=== PATIENT | female | born 2005 | race Hispanic/Latino ===

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

== ENCOUNTER 2024-06-29 21:08 | Emergency (ER) | payer OTHER, SELFPAY ==
--- OUTSIDE RECORDS SUMMARY | 2024-06-29 21:11 | XMS REPORT | Continuity of Care Document ---
Author Name Unknown Address [address] [facility] [address] [place] [address] [facility] Address [address] [facility] [address] [place] [address] Care Team Providers Care Food And Beverage Checker Name Role Phone JACKLYN BASS Primary Care Physician Unavailab MIRNA Pinedo Attending Clinician Unavailable JACKLYN BASS Attending Clinician Unavailable Suresh KILLIAN, July Attending Clinician Unavailab SIGIFREDO Tellez Attending Clinician SIGIFREDO Mcgee Attending Clinician BETHANY Ballard Attending Clinician Unavailable Bethany Benedict Attending Clinician [phone] Lab, Ang - Db Attending Clinician Unavailable Jacklyn Figueroa Attending Clinician [phone] Doctor Unassigned, [place] Attending Clinician U CELSO Singh Attending Clinician Unavailab HARJIT Mcnamara Attending Clinician Unavailable OZZY URBAN Attending Clinician Riri Gao MD Attending Clinician [phone] RIRI HUTTON Attending Clinician Unavail able Tono Castro MD Attending Clinician [phone] TONO CASTRO Attending Clinician Unavailable BLOSSOM PEREZ Attending Clinician Unavailab GODWIN Vargas Attending Clinician Unavailab NATASHA Almeida Attending Clinician Unavailable Regina Bustillo MD Attending Clinician [phone] Natasha Forrest MD Attending Clinician [phone] Chris ROSARIO, Blossom Herman Attending Clinician Ronald Bach Attending Clinician [phone]- [phone] RONALD WEBER Attending Clinician Unavail able Perico Zafar MD Attending Clinician [phone] Unknown, Attending Attending Clinician Unavailab le Payers Payer Name Policy Type Policy Number Effective Date Expirati on Date Source [employer] MP [employer] [employer] O [employer] 94 ON 9 [id number] 2023 00:00:00 [facility] [id number] 2021 00:00:00 Problems Condition Name Condition Details Condition Category Status Onset Date Resolution Date Last Treatment Date Treating Clinician Comments Source Vulvar abscess Vulvar abscess Disease Active 6-05 00:00: 00 [facility] Dysmenorrh ea Dysmenorrh ea Disease Active -16 00:00: 00 [facility] Need for hepatitis C screening test Need for hepatitis C screening test Disease Active 5-16 00:00: 00 [facility] Enlarged tonsils Enlarged tonsils Disease Active -16 00:00: 00 [facility] Acute vaginitis Acute vaginitis Disease Active 2021-04 0-07 00:00: 00 [facility] Yeast infection Yeast infection Disease Active 2021-04 0- 00:00: 00 [facility] Encounter to establish care Encounter to establish care Disease Active 2021-04 0- 00:00: 00 [facility] Diabetes mellitus, new onset Diabetes mellitus, new onset Disease Active 2020-04 2-08 00:00: 00 [facility] Agoraphobi a Agoraphobi a Disease Active 12-19 00:00: 00 [facility] Generalize d anxiety disorder Generalize d anxiety disorder Disease Active 12-19 00:00: 00 [facility] Allergies, Adverse Reactions, Alerts Allergy Name Allergy Type Status Severity Reaction(s) Onset Date Inactive Date Treating Clinician Comments Source NO KNOWN ALLERGIE S Drug Class Active [facility] Social History Social Habit Start Date Stop Date Quantity Comments Source Gender identity [facility] Tobacco use and exposure 2022-09-14 00:00:00 2022-09-14 00:00:00 Smokeless tobacco non-user [facility] History of Social function 2022-09-09 00:00:00 2022-09-09 00:00:00 [facility] Exposure to SARS-CoV-2 (event) 2022-08-29 00:00:00 2022-09-08 15:42:00 Not sure [facility] Sex Assigned At 2003 00:00:00 2005 00:00:00 [facility] Smoking Status Start Date Stop Date Source Never smoked tobacco [facility] Medications Ordered Medication Name Filled Medication Name Start Date Stop Date Current Medication? Ordering Clinician Indication Dosage Frequency Signature (SIG) Comments Components Source sulfamethox azole-trime thoprim (BACTRIM DS) 800-160 mg per tablet 09-14 00:00: 00 Yes [id number] 1{tbl} Take 1 tablet by mouth in the morning and 1 tablet in the evening. [facility] LOESTRIN FE (LOESTRIN FE 05/01) 1 mg-20 mcg (21)/75 mg (7) tablet 09-14 00:00: 00 Yes [id number] 1{tbl} Take 1 tablet by mouth in the morning. [facility] fluconazole (DIFLUCAN) 150 mg tablet 09-09 00:00: 00 09-10 04:59 :00 No [id number] 150mg Take 1 tablet by mouth once now for 1 dose. [facility] metformin ER 500 mg 24 hr tablet 24 00:00: 00 Yes [facility] fluconazole (DIFLUCAN) 150 mg tablet 2021-04 0-07 00:00: 00 08-25 00:00 :00 No [id number] Take 1 tab today and repeat 1 in 72 hrs [facility] NOVOLOG FLEXPEN U-100 INSULIN 100 unit/mL (3 mL) injection 12-19 00:00: 00 Yes inject under the skin. 4-8 units at meal time [facility] LANTUS SOLOSTAR U-100 INSULIN 100 unit/mL (3 mL) injection 12-19 00:00: 00 Yes 36U 36 Units at bedtime. [facility] fluticasone propionate 50 mcg/actuati on nasal spray 04-22 00:00: 00 01-16 00:00 :00 No [id number] 1{spray } Use 1 [place] in each nostril daily. [facility] clindamycin -benzoyl peroxide gel 2019-04 00:00: 00 01-16 00:00 :00 No [id number] Apply to area(s) every morning. [facility] doxycycline monohydrate 100 mg capsule 12-28 00:00: 00 01-16 00:00 :00 No 100mg Take 1 capsule by mouth 2 (two) times daily. [facility] fluocinolon e (DERMA-SMOO THE/FS BODY OIL) 0.01 % body oil 12-21 00:00: 00 01-16 00:00 :00 No [id number] Apply to area(s) 2 (two) times daily as needed for Rash or Itching. [facility] tretinoin 0.025 % cream 12-21 00:00: 00 01-16 00:00 :00 No [id number] Apply to area(s) at bedtime. Start Mon/Wed/ i and increase to nightly as tolerated [facility] doxycycline monohydrate 100 mg tablet 12-21 00:00: 00 01-16 00:00 :00 No [id number] 100mg Take 1 tablet by mouth 2 (two) times daily. Twice daily for 2 weeks then daily until follow up [facility] Vital Signs Vital Name Observation Time Observation Value Comments S ource Systolic blood pressure 2022-09-14 14:33:00 125 mm[Hg] [facility] Diastolic blood pressure 2022-09-14 14:33:00 83 mm[Hg] [facility] Heart rate 2022-09-14 14:33:00 62 /min [facility] Body temperature 2022-09-14 14:33:00 36.5 Tarah [facility] Respiratory rate 2022-09-14 14:33:00 18 /min [facility] Body height 2022-09-14 14:33:00 157.5 cm [facility] Body weight 2022-09-14 14:33:00 69.854 kg [facility] BMI 2022-09-14 14:33:00 28.17 kg/m2 [facility] Body mass index (BMI) [Percentile] Per age and sex 2022-09-14 14:33:00 91.23 % [facility] Systolic blood pressure 2022-09-09 21:20:00 133 mm[Hg] [facility] Diastolic blood pressure 2022-09-09 21:20:00 82 mm[Hg] [facility] Heart rate 2022-09-09 21:20:00 80 /min [facility] Body temperature 2022-09-09 21:20:00 36.83 Tarah [facility] Respiratory rate 2022-09-09 21:20:00 18 /min [facility] Body height 2022-09-09 21:20:00 157.5 cm [facility] Body weight 2022-09-09 21:20:00 71.26 kg [facility] BMI 2022-09-09 21:20:00 28.73 kg/m2 [facility] Body mass index (BMI) [Percentile] Per age and sex 2022-09-09 21:20:00 92.29 % [facility] Oxygen saturation in Arterial blood by Pulse oximetry 2022-09-09 21:20:00 98 /min [facility] Systolic blood pressure 2022-08-25 15:57:00 110 mm[Hg] [facility] Diastolic blood pressure 2022-08-25 15:57:00 72 mm[Hg] [facility] Heart rate 2022-08-25 15:57:00 68 /min [facility] Body temperature 2022-08-25 15:57:00 36.78 Tarah [facility] Body height 2022-08-25 15:57:00 160 cm [facility] Body weight 2022-08-25 15:57:00 71.305 kg [facility] BMI 2022-08-25 15:57:00 27.85 kg/m2 [facility] Body mass index (BMI) [Percentile] Per age and sex 2022-08-25 15:57:00 90.61 % [facility] Oxygen saturation in Arterial blood by Pulse oximetry 2022-08-25 15:57:00 98 /min [facility] Systolic blood pressure 2022-01-16 14:53:00 126 mm[Hg] [facility] Diastolic blood pressure 2022-01-16 14:53:00 81 mm[Hg] [facility] Heart rate 2022-01-16 14:53:00 83 /min [facility] Body temperature 2022-01-16 14:53:00 36.89 Tarah [facility] Body height 2022-01-16 14:53:00 160 cm [facility] Body weight 2022-01-16 14:53:00 76.658 kg [facility] BMI 2022-01-16 14:53:00 29.94 kg/m2 [facility] Body mass index (BMI) [Percentile] Per age and sex 2022-01-16 14:53:00 94.55 % [facility] Oxygen saturation in Arterial blood by Pulse oximetry 2022-01-16 14:53:00 99 /min [facility] Systolic blood pressure 2021-06-19 14:15:00 125 mm[Hg] [facility] Diastolic blood pressure 2021-06-19 14:15:00 82 mm[Hg] [facility] Heart rate 2021-06-19 14:15:00 87 /min [facility] Body temperature 2021-06-19 14:15:00 36.39 Tarah [facility] Respiratory rate 2021-06-19 14:15:00 19 /min [facility] Body weight 2021-06-19 14:15:00 69.174 kg [facility] Oxygen saturation in Arterial blood by Pulse oximetry 2021-06-19 14:15:00 98 /min [facility] Procedures Procedure Date / Time Performed Performing Clinicia n Source POCT TEST 2022-09-09 00:00:00 Bethany Serra [facility] ASSIGNMENT OF BENEFITS 2022-08-25 15:40:38 Docto r Unassigned, [place] [facility] POCT URINALYSIS 2022-01-16 00:00:00 Jacklyn Bass [facility] Encounters Start Date/Time End Date/Time Encounter Type Admission Type Attending [facility] Care Facility Care Department Encounter ID Source 2024-02-01 16:00:00 2024-02-01 16:00:00 Outpatient MIRNA OSORIO [id number] Elida Zayas 2022-12-29 08:00:00 2022-12-29 08:00:00 Outpatient JACKLYN HOBBS [facility] [id number] [facility] 2022-12-22 00:00:00 2022-12-22 00:00:00 Pre Visit Outreach Shahnaz Prince 1.2.840.114 350.1.13.10 4.2.7.2.686 [id number] [facility] 2022-12-15 09:30:00 2022-12-15 09:30:00 Outpatient R OLIVA-JOHNIE S, SIGIFREDO OLIVA-JOHNIE S, SIGIFREDO [facility] [id number] [facility] 2022-09-14 09:00:00 2022-09-14 09:52:13 Outpatient R OLIVA-JOHNIE S, SIGIFREDO OLIVA-JOHNIE S, SIGIFREDO [facility] [id number] [facility] 2022-09-14 09:00:00 2022-09-14 09:52:13 [facility] 1.2840.114 350.1.13.10 4.2.7.2.686 [id number] [facility] 2022-09-09 16:20:00 2022-09-09 16:40:02 Outpatient R BETHANY SERRA [facility] [id number] [facility] 2022-09-09 16:20:00 2022-09-09 16:40:02 [facility] 1.284.114 350.1.13.10 4.2.7.2.686 [id number] [facility] 2022-08-25 11:30:00 2022-08-25 11:38:05 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, Jacklyn Stafford [facility] 1.284.114 350.1.13.10 4.2.7.2.686 [id number] [facility] 2022-08-25 11:30:00 2022-08-25 11:30:00 Outpatient R JACKLYN BASS [facility] [id number] [facility] 2022-08-25 10:30:00 2022-08-25 11:25:41 Office Visit Jacklyn Bass [facility] 1.2840.114 350.1.13.10 4.2.7.2.686 [id number] [facility] 2022-08-25 00:00:00 2022-08-25 00:00:00 Orders Only Doctor Unassigned, [place] [facility] 1.2840.114 350.1.13.10 4.2.7.2.686 [id number] [facility] 2022-01-16 10:00:00 2022-01-16 10:24:07 Outpatient R TALIJACKLYN Altamirano [facility] [id number] [facility] 2022-01-16 10:00:00 2022-01-16 10:24:07 Office Visit Kali Jacklyn [facility] 1..840.114 350.1.13.10 4.2.7.2.686 [id number] [facility] 2021-09-23 10:15:00 2021-09-23 10:15:00 Outpatient R CELSO VALDEZ [facility] [id number] [facility] 2021-08-13 14:30:00 2021-08-13 14:30:00 Outpatient R HARJIT LAST [facility] [id number] [facility] 2021-07-15 14:40:00 2021-07-15 14:40:00 Outpatient R OZZY URBAN [facility] [id number] [facility] 2021-06-19 08:20:00 2021-06-19 08:40:00 Office Visit Riri Hutton [facility] 1.840.114 350.1.13.10 4.2.7.2.686 [id number] [facility] 2021-06-19 08:20:00 2021-06-19 08:20:00 Outpatient R RIRI HUTTON [facility] [id number] [facility] 2021-04-22 13:20:00 2021-04-22 13:47:41 Office Visit Tono Castro [facility] 1.84.114 350.1.13.10 4.2.7.2.686 [id number] [facility] 2021-04-22 13:20:00 2021-04-22 13:47:41 Outpatient R TONO CASTRO [facility] [id number] [facility] 2021-04-22 13:20:00 2021-04-22 13:20:00 Outpatient R STEVEN TONO [facility] [id number] [facility] 2021-04-22 00:00:00 2021-04-22 00:00:00 Telephone Tono Castro [facility] 1.2.840.114 350.1.13.10 4.2.7.2.686 [id number] [facility] 2021-03-19 00:00:00 2021-03-19 00:00:00 Telephone Riri Hutton [facility] 1.2.840.114 350.1.13.10 4.2.7.2.686 [id number] [facility] 2021-03-18 09:40:00 2021-03-18 10:28:00 Outpatient RIRI JOHNSON [facility] [id number] [facility] 2021-03-18 09:37:28 2021-03-18 10:28:00 Office Visit Riri Hutton [facility] 1.2840.114 350.1.13.10 4.2.7.2.686 [id number] [facility] 2021-03-18 09:40:00 2021-03-18 09:40:00 Outpatient R RIRI HUTTON [facility] [id number] [facility] 2021-03-18 00:00:00 2021-03-18 00:00:00 Orders Only Doctor Unassigned, [place] [facility] 1.2840.114 350.1.13.10 4.2.7.2.686 [id number] [facility] 2021-02-05 10:10:00 2021-02-05 10:10:00 Outpatient BLOSSOM BOWDEN [facility] [id number] [facility] 2020-05-24 14:45:00 2020-05-24 14:45:00 Outpatient GODWIN HALE [facility] [id number] [facility] 2020-05-07 10:00:00 2020-05-07 10:00:00 Outpatient CELSO YEUNG [facility] [id number] [facility] 2020-04-22 10:15:00 2020-04-22 10:15:00 Outpatient NATASHA ALLEN [facility] [id number] [facility] 2020-03-22 13:30:00 2020-03-22 13:30:00 Outpatient GODWIN HALE [facility] [id number] [facility] 2020-02-21 00:00:00 2020-02-21 00:00:00 Telephone Regina Bustillo [facility] 1.2.840.114 350.1.13.10 4.2.7.2.686 [id number] [facility] 2020-02-07 00:00:00 2020-02-07 00:00:00 Telephone [facility] 1.2.840.114 350.1.13.10 4.2.7.2.686 [id number] [facility] 2020-01-29 00:00:00 2020-01-29 00:00:00 Telephone [facility] 1.2.840.114 350.1.13.10 4.2.7.2.686 [id number] [facility] 2019-12-29 00:00:00 2019-12-29 00:00:00 Telephone [facility] 1.2.840.114 350.1.13.10 4.2.7.2.686 [id number] [facility] 2019-12-27 00:00:00 2019-12-27 00:00:00 Telephone [facility] 1.0.114 350.1.13.10 4.2.7.2.686 [id number] [facility] 2019-12-22 14:13:28 2019-12-22 16:01:37 Office [facility] 1.0.114 350.1.13.10 4.2.7.2.686 [id number] [facility] 2019-12-22 15:15:00 2019-12-22 15:15:00 Outpatient R NATASHA FORREST [facility] [id number] [facility] 2019-12-20 07:46:32 2019-12-20 09:01:35 Office Visit Tono Castro [facility] 1.0.114 350.1.13.10 4.2.7.2.686 [id number] [facility] 2019-12-20 08:00:00 2019-12-20 08:00:00 Outpatient RIRI JOHNSON [facility] [id number] [facility] 2019-08-16 15:10:00 2019-08-16 15:10:00 Outpatient BLOSSOM BOWDEN [facility] [id number] [facility] 2019-08-16 14:14:45 2019-08-16 14:34:45 Telemedici ne Visit Blossom Perez [facility] 1..114 350.1.13.10 4.2.7.2.686 [id number] [facility] 2019-08-15 00:00:00 2019-08-15 00:00:00 Orders Only Doctor Unassigned, [place] [facility] 1.840.114 350.1.13.10 4.2.7.2.686 [id number] [facility] 2019-08-14 00:00:00 2019-08-14 00:00:[address] [facility] 1.840.114 350.1.13.10 4.2.7.2.686 [id number] [facility] 2019-07-14 13:30:00 2019-07-14 13:30:00 Outpatient R BLOSSOM PEREZ [facility] [id number] [facility] 2019-07-14 12:58:26 2019-07-14 13:18:26 Telemedici ne Visit Blossom Perez [facility] 1.2840.114 350.1.13.10 4.2.7.2.686 [id number] [facility] 2019-07-12 00:00:00 2019-07-12 00:00:[address] [facility] 1.2840.114 350.1.13.10 4.2.7.2.686 [id number] [facility] 2019-07-05 16:00:00 2019-07-05 16:00:00 Outpatient R WEBER [facility] [id number] [facility] 2019-07-05 14:24:28 2019-07-05 14:44:28 Telemedici ne Visit Weber [facility] 1.2840.114 350.1.13.10 4.2.7.2.686 [id number] [facility] 2019-07-05 00:00:00 2019-07-05 00:00:[address] [facility] 1.2.840.114 350.1.13.10 4.2.7.2.686 [id number] [facility] 2019-06-13 13:51:57 2019-06-13 14:15:[address] [facility] 1.2.840.114 350.1.13.10 4.2.7.2.686 [id number] [facility] 2019-06-13 14:00:00 2019-06-13 14:00:00 Outpatient R RONALD WEBER [facility] [id number] [facility] 2019-06-13 00:00:00 2019-06-13 00:00:00 Orders Only Doctor Unassigned, [place] [facility] 1.2.840.114 350.1.13.10 4.2.7.2.686 [id number] [facility] 2019-06-13 00:00:00 2019-06-13 00:00:00 Letter (Out) Weber [facility] 1.2.840.114 350.1.13.10 4.2.7.2.686 [id number] [facility] 2019-05-31 14:00:12 2019-05-31 14:19:53 Office Visit Weber Ronald [facility] 1.2.840.114 350.1.13.10 4.2.7.2.686 [id number] [facility] 2019-05-31 00:00:00 2019-05-31 00:00:00 Letter (Out) Weber [facility] 1.2.840.114 350.1.13.10 4.2.7.2.686 [id number] [facility] 2019-04-21 00:00:00 2019-04-21 00:00:00 Telephone Tono Castro [facility] 1.2.840.114 350.1.13.10 4.2.7.2.686 [id number] [facility] 2018-12-09 14:19:21 2018-12-09 15:05:49 Office Visit Blossom Perez [facility] 1.2.840.114 350.1.13.10 4.2.7.2.686 [id number] [facility] 2018-12-09 00:00:00 2018-12-09 00:00:00 Orders Only Doctor Unassigned, [place] [facility] 1.2.840.114 350.1.13.10 4.2.7.2.686 [id number] [facility] 2018-11-27 11:25:55 2018-11-27 11:40:55 Urgent Care Perico Zafar Unknown, Attending [facility] 1.2.840.114 350.1.13.10 4.2.7.2.686 [id number] [facility] 2018-11-27 00:00:00 2018-11-27 00:00:00 Orders Only Doctor Unassigned, [place] [facility] 1.2.840.114 350.1.13.10 4.2.7.2.686 [id number] [facility] 2018-11-24 00:00:00 2018-11-24 00:00:00 Telephone Ronald Weber [facility] 1.2.840.114 350.1.13.10 4.2.7.2.686 [id number] [facility] Results Test Description Test Time Test Comments Results Result Co mments Source [facility] [id number] 21:40:00* Test Item Value Reference Range Interpretation Comme nts POCT PREG (test code = 1605) Negative On board controls acceptable with C Line (test code = 3574) Yes POCT PREG LOT # (test code = 3575) POCT PREG TEST DATE ( test code = 3576) [facility] URINALYSIS W SPECIFIC [id number] 15:46:00* Test Item Value Reference Range Interpretation Comme nts POCT U SP GRAV (test code = 3255) 1.020 mg/dl 1.005-1.025 POCT PH U (test code = 3254) 6 mg/dl 5-8 POCT U LEUK EST (test code = 3263) neg Negative - Negative POCT U NIT (test code = 3262) neg Negative - Negati ve POCT U PROT (test code = 3259) neg Negative - Negative POCT U GLU (test code = 3256) Negative - Negati ve POCT U KETONE (test code = 3258) neg Negative - Negative POCT U UROBILI (test code = 3260) normal 0.2-1 POCT U BILI (test code = 3261) neg Negative - Negative POCT U BLD (test code = 3257) trace Negative - Negati ve POCT U COLOR (test code = 3266) dark POCT U APPEAR (test code = 3267) clear [facility] URINALYSIS W SPECIFIC [id number] 15:46:00* Test Item Value Reference Range Interpretation Comme nts POCT U SP GRAV (test code = 3255) 1.020 mg/dl 1.005-1.025 POCT PH U (test code = 3254) 6 mg/dl 5-8 POCT U LEUK EST (test code = 3263) neg Negative - Negative POCT U NIT (test code = 3262) neg Negative - Negati ve POCT U PROT (test code = 3259) neg Negative - Negative POCT U GLU (test code = 3256) Negative - Negati ve POCT U KETONE (test code = 3258) neg Negative - Negative POCT U UROBILI (test code = 3260) normal 0.2-1 POCT U BILI (test code = 3261) neg Negative - Negative POCT U BLD (test code = 3257) trace Negative - Negati ve POCT U COLOR (test code = 3266) dark POCT U APPEAR (test code = 3267) clear [facility] URINALYSIS W SPECIFIC [id number] 15:46:00* Test Item Value Reference Range Interpretation Comme nts POCT U SP GRAV (test code = 3255) 1.020 mg/dl 1.005-1.025 POCT PH U (test code = 3254) 6 mg/dl 5-8 POCT U LEUK EST (test code = 3263) neg Negative - Negative POCT U NIT (test code = 3262) neg Negative - Negati ve POCT U PROT (test code = 3259) neg Negative - Negative POCT U GLU (test code = 3256) Negative - Negati ve POCT U KETONE (test code = 3258) neg Negative - Negative POCT U UROBILI (test code = 3260) normal 0.2-1 POCT U BILI (test code = 3261) neg Negative - Negative POCT U BLD (test code = 3257) trace Negative - Negati ve POCT U COLOR (test code = 3266) dark POCT U APPEAR (test code = 3267) [facility] [id number] 15:46:00* Test Item Value Reference Range Interpretation Comme nts POCT U SP GRAV (test code = 3255) 1.020 mg/dl 1.005-1.025 POCT PH U (test code = 3254) 6 mg/dl 5-8 POCT U LEUK EST (test code = 3263) neg Negative - Negative POCT U NIT (test code = 3262) neg Negative - Negati ve POCT U PROT (test code = 3259) neg Negative - Negative POCT U GLU (test code = 3256) Negative - Negati ve POCT U KETONE (test code = 3258) neg Negative - Negative POCT U UROBILI (test code = 3260) normal 0.2-1 POCT U BILI (test code = 3261) neg Negative - Negative POCT U BLD (test code = 3257) trace Negative - Negati ve POCT U COLOR (test code = 3266) dark POCT U APPEAR (test code = 3267) clear [facility] Notes Date/Time Note Provider Source 2022-12-22 13:13:20 Formatting of this n ote might be different from the original. [employer] [facility] Care Everywhere searched for patient records.Information reconciled into the patients chart. [employer] Message sent to patient with open care gaps. PN-PSYCHIATRY [facility]
[2024-06-29] MEDS ORDERED: NA CHLORIDE 0.9% 1,000 ML ONE (22:31)
[2024-06-29 22:37] LABS: Absolute Eosinophils 0.3 K/uL (0-0.5); Absolute Lymphocytes (CBC) 2.8 K/uL (0.7-4.9); Absolute Monocytes 0.6 K/uL (0.1-1.3); Absolute Neutrophil 3.9 K/uL (1.8-8.0); Basophils % 0.6 % (0-1.3); Eosinophils % 3.5 % (0-4.4); Hematocrit 42.4 % (36.0-45.0); Hemoglobin 14.8 g/dL (12.0-15.0); Lymphocytes % 36.7 % (15.3-44.8); MCH 28.9 pg (27.0-35.0); MCV 82.6 fL (80-100); MPV 8.3 fL (7.6-11.3); Monocytes % 8.2 % (3.3-12.3); Platelets 269 thou/uL (152-406); RBC Red Blood Cell Count 5.13 M/uL (3.86-4.86); Red Cell Distribution Width 12.8 % (12.1-15.2)
[2024-06-29 22:54] LABS: Albumin 3.7 g/dL (3.4-5.0); Anion Gap 6.6 mEq/L (5.0-15.0); Bilirubin Total 0.3 mg/dL (0.2-1.0); Globulin 3.7 g/dL (2.3-3.5); Potassium 3.6 mEq/L (3.5-5.1); Protein, Total 7.4 g/dL (6.4-8.2)
[2024-06-29 23:13] LABS: Specific Gravity 1.027 (1.005-1.030); Urine Bilirubin NEGATIVE (Negative); Urine Blood Negative (Negative); Urine Clarity Clear (Clear); Urine Color Light-Yellow (Yellow); Urine Glucose 4+ (Over) (Negative); Urine Ketones NEGATIVE (Negative); Urine Microscopic Reflex YN NO UMIC; Urine Nitrite NEGATIVE (Negative); Urine Protein NEGATIVE (Negative); Urine Urobilinogen Normal (Normal)
[2024-06-30] MEDS ORDERED: NA CHLORIDE 0.9% 1,000 ML ONE (00:27)
[2024-06-30] MEDS ORDERED: METFORMIN HCL 500 MG TAB ONE (00:27)
--- NOTE | 2024-06-30 00:51 | EDPHYS ---
Physician Documentation [facility] Name: Lewis Smith Age: 18 yrs Sex: Female : 2005 Arrival Date: 06/29/2024 Time: 21:08 Bed DX1 Private MD: ED Physician Sebastian Tucker HPI: 06/29 22:10 This 18 yrs old Female presents to ER via Ambulatory with complaints of cp Headache. 22:10 The patient complains of pain to the top of head and forehead. The patient describes cp the headache as aching, waxing and waning. 22:10 Onset: The symptoms/episode began/occurred for about 1 month, intermittent. headache at cp times after waking up. 22:10 Associated signs and symptoms: Pertinent positives: nausea, Pertinent negatives: fever, cp neck stiffness, trauma. Patient reports PMHX significant for DM. Reports in the past prescribed insulin and metformin but has been off prescribed medications for about 2 years. Historical: - Allergies: 21:29 No Known Allergies; br2 - PMHx: 21:29 diabetes mellitus; br2 - Immunization history:: Adult Immunizations up to date. - Infectious Disease History:: Denies. - Social history:: Smoking status: Patient/guardian denies using tobacco, Patient uses Patient/guardian denies using alcohol, street drugs. ROS: 22:15 Constitutional: Negative for body aches, chills, fever, poor PO intake, cp 22:15 Cardiovascular: Negative for chest pain, palpitations, cp 22:15 Respiratory: Negative for cough, shortness of breath, wheezing, 22:15 Abdomen/GI: Positive for nausea, Negative for abdominal pain, vomiting, diarrhea, constipation, 22:15 : Negative for urinary symptoms, 22:15 Neuro: Positive for headache, Negative for altered mental status, weakness, 22:15 Endocrine: Positive for polydipsia, 22:15 All other systems are negative, Exam: 22:20 Constitutional: The patient appears in no acute distress, alert, awake, cp non-diaphoretic, non-toxic, well developed, well nourished, 22:20 Head/Face: Normocephalic, atraumatic. cp 22:20 Eyes: Periorbital structures: appear normal, Pupils: equal, round, and reactive to light and accomodation, Extraocular movements: intact throughout, Conjunctiva: normal, no exudate, no injection, Sclera: no appreciated abnormality, Lids and lashes: appear normal, bilaterally, 22:20 ENT: External ear(s): are unremarkable, Nose: is normal, Mouth: Lips: moist, Oral mucosa: moist, Posterior pharynx: Airway: no evidence of obstruction, patent, 22:20 Neck: ROM/movement: is normal, is supple, without pain, no range of motions limitations, 22:20 Chest/axilla: Inspection: normal, 22:20 Cardiovascular: Rate: normal, Rhythm: regular, 22:20 Respiratory: the patient does not display signs of respiratory distress, Respirations: normal, no use of accessory muscles, no retractions, labored breathing, is not present, Breath sounds: are clear throughout, no decreased breath sounds, no stridor, no wheezing, 22:20 Abdomen/GI: Inspection: abdomen appears normal, Palpation: abdomen is soft and non-tender, in all quadrants, 22:20 Neuro: Orientation: to person, place \T\ time. Mentation: is normal, Cerebellar function: Romberg testing is negative, Motor: moves all fours, strength is normal, Sensation: no obvious gross deficits, Gait: is steady, at a normal pace, without difficulty, Vital Signs: 21:25 BP 138 / 97; Pulse 85; Resp 18; Temp 97.2(TE); Pulse Ox 100% on R/A; Weight 68.04 kg; br2 Height 5 ft. 3 in. ; Pain 8/10; 06/30 01:20 BP 125 / 85; Pulse 81; Resp 17 S; Temp 97.6(T); Pulse Ox 100% on R/A; ha1 06/29 21:25 Body Mass Index 26.57 (68.04 kg, 160.02 cm) br2 06/29 21:25 Pain Scale: Adult br2 Vikas Coma Score: 00:50 Eye Response: spontaneous(4). Motor Response: obeys commands(6). Verbal Response: cp oriented(5). Total: 15. MDM: 06/29 21:26 Medical Screening Exam initiated cp 23:00 Differential diagnosis: hyponatremia, intracerebral hemorrhage, migraine, sinusitis, cp subarachnoid bleed, tension headache, hyperglycemia. 06/30 00:50 Data reviewed: vital signs, nurses notes, lab test result(s), radiologic studies, CT cp scan, and as a result, I will discharge patient. 00:50 Care significantly affected by the following chronic conditions: Diabetes, cp noncompliant. Counseling: I had a detailed discussion with the patient and/or guardian regarding the historical points, exam findings, and any diagnostic results supporting the discharge/admit diagnosis, lab results, radiology results, the need for outpatient follow up, for definitive care, a family practitioner, to return to the emergency department if symptoms worsen or persist or if there are any questions or concerns that arise at home. Response to treatment: the patient's symptoms have markedly improved after treatment, and as a result, I will discharge patient. 00:50 Care significantly affected by the following Social Determinants of Health: Poor access cp to healthcare and/or lack of insurance. 06/29 21: Order name: CBC with Diff; Complete Time: 23:25 cp 06/30 00:02 Interpretation: Normal except: RBC 5.13. cp 06/29 22: Order name: CMP; Complete Time: 23:25 cp 06/30 00:02 Interpretation: Normal except: NA 134; GLUC 301; GLOB 3.7; A/G 1.0. cp 06/29 22: Order name: Lipase; Complete Time: 23:25 cp 06/29 22: Order name: Test, Urine; Complete Time: 23:25 cp 06/29 22: Order name: Urinalysis w/ reflexes; Complete Time: 23:25 cp 06/30 00:03 Interpretation: Normal except: UGLUC 4+ (Over). cp 06/29 21:43 Order name: Glucose, Ancillary Testing; Complete Time: 23:25 EDMS 06/29 22: Order name: CT Head Brain wo Cont cp 06/29 22: Order name: Accucheck Blood Glucose; Complete Time: 22:33 cp 06/29 22: Order name: IV Saline Lock; Complete Time: 22:33 cp 06/29 21: Order name: Labs collected and sent; Complete Time: 22:33 cp Administered Medications: 06/29 21:43 Drug: NS 0.9% IV 1000 ml IV at 1 bolus Per protocol; to be given as a bolus over 60 br2 minutes Route: IV; Rate: 1 bolus; Site: right antecubital; 06/30 00:04 Follow up: Response: No adverse reaction; IV Status: Completed infusion ha1 00:13 Not Given (Patient Refused): [id number] mg IVP once; over 1 to 2 minutes ha1 00:13 Not Given (Patient Refused): mg IVP once ha1 00:13 Not Given (Patient Refused): [id number] mg IVP once ha1 00:38 Drug: metFORMIN PO 1000 mg PO once; with meal or snack Route: PO; ha1 01:30 Follow up: Response: No adverse reaction; Blood sugar is lowered ha1 00:38 Drug: NS 0.9% IV 1000 ml IV at 1 bolus Per protocol; to be given as a bolus over 60 ha1 minutes Route: IV; Rate: 1 bolus; Site: left antecubital; 01:00 Follow up: Response: No adverse reaction; IV Status: Completed infusion; IV Intake: ha1 1000ml Point of Care Testing: Blood Glucose: 06/29 22:36 Blood Glucose: 288 mg/dL; br2 Ranges: Critical Glucose Levels:Adult <50 mg/dl or >400 mg/dl <40 mg/dl or >180 mg/dl Disposition: 06/30 15:59 Co-signature as Attending Physician, Sebastian Tucker MD I agree with the assessment sp4 and plan of care. I reviewed the patient's care provided by the Advanced Practice Provider and agree with the diagnosis and treatment plan. 07/01 01:03 Chart complete. cp Disposition Summary: 06/30/24 00:51 Discharge Ordered Notes: Location: Home cp Problem: an ongoing problem cp Symptoms: have improved cp Condition: Stable cp Diagnosis - Diabetes mellitus due to underlying condition with hyperglycemia cp - Headache cp Followup: cp - With: Buck Weber MD - When: 1 week - Reason: headaches Followup: cp - With: Private Physician - When: 2 - 3 days - Reason: elevated blood glucose, follow-up for diabetes Discharge Instructions: - Discharge Summary Sheet cp - General Headache Without Cause cp - Migraine Headache cp - Hyperglycemia cp - Daily Diabetes Mellitus Record cp - Blood Glucose Monitoring, Adult cp - Diabetes Mellitus and Nutrition, Adult cp Forms: - Medication Reconciliation Form cp - Antibiotic Education cp - Prescription Opioid Use cp - Patient Portal Instructions cp - Leadership Thank You Letter cp Prescriptions: - Ibuprofen 800 mg Oral Tablet - take 1 tablet ORAL route every 8 hours As needed take with food; 30 tablet; cp Refills: 0, Product Selection Permitted - Zofran 4 mg Oral Tablet - take 1 tablet ORAL route every 12 hours As needed; 20 tablet; Refills: 0, cp Product Selection Permitted - Metformin 1,000 mg Oral tablet - take 0.5 tablet ORAL route every 12 hours with morning and evening meals; 60 cp tablet; Refills: 0, Product Selection Permitted Signatures: Dispatcher [employer] EDVA Cipriano Miranda PA PA cp Ayala, Heidy, RN RN ha1 Sebastian Tucker MD MD sp4 Deidra Connolly RN RN br2
--- NOTE | 2024-06-30 00:51 | ER ---
Nurse's Notes [facility] Name: Lewis Smith Age: 18 yrs Sex: Female : 2005 Arrival Date: 06/29/2024 Time: 21:08 Bed DX1 Private MD: Diagnosis: Diabetes mellitus due to underlying condition with hyperglycemia;Headache Presentation: 06/29 21:25 Chief complaint: Patient states: FREQ MIGRAINS FOR MONTH. UNABLE TO GET RELIEF TODAY. br2 C/O NAUSEA. Coronavirus screen: Client denies travel out of the [place] in the last 14 days. Ebola Screen: Patient denies exposure to infectious person. Initial Sepsis Screen: Does the patient meet any 2 criteria? No. Patient's initial sepsis screen is negative. Does the patient have a suspected source of infection? No. Patient's initial sepsis screen is negative. Risk Assessment: Do you want to hurt yourself or someone else? Patient reports no desire to harm self or others. Onset of symptoms is unknown. 21:25 Method Of Arrival: Ambulatory br2 21:25 Acuity: LAURI 3 br2 Triage Assessment: 21:25 Pain: Pain began 1 day ago. Neuro: Kc Agitation-Sedation Scale (RASS): 0 - Alert br2 and Calm Level of Consciousness is awake, alert, obeys commands, Oriented to person, place, time, situation, Reports headache frontal area, NAUSEA. 21:29 Headache History: The patient has had previous headaches. General: Appears in no br2 apparent distress. comfortable, Behavior is calm, cooperative. Pain: Complains of pain in forehead Pain currently is 8 out of 10 on a pain scale. Also complains of nausea. Historical: - Allergies: 21:29 No Known Allergies; br2 - PMHx: 21:29 diabetes mellitus; br2 - Immunization history:: Adult Immunizations up to date. - Infectious Disease History:: Denies. - Social history:: Smoking status: Patient/guardian denies using tobacco, Patient uses Patient/guardian denies using alcohol, street drugs. Screenin:25 [facility] ED Fall Risk Assessment (Adult) History of falling in the last 3 months, br2 including since admission No falls in past 3 months (0 pts) Confusion or Disorientation No (0 pts) Intoxicated or Sedated No (0 pts) Impaired Gait No (0 pts) Mobility Assist Device Used No (0 pt) Altered Elimination No (0 pt) Score/Fall Risk Level 0 - 2 = Low Risk Oriented to surroundings. Abuse screen: Denies threats or abuse. Denies injuries from another. Nutritional screening: No deficits noted. Tuberculosis screening: No symptoms or risk factors identified. Assessment: 21:25 Reassessment: SEE TRIAGE ASSESSMENT. br2 23:50 Reassessment: Patient and/or family updated on plan of care and expected duration. Pain ha1 level reassessed. Patient is alert, oriented x 3, equal unlabored respirations, skin warm/dry/pink. Patient denies pain at this time. Patient states feeling better. Patient states symptoms have improved. Vital Signs: 21:25 BP 138 / 97; Pulse 85; Resp 18; Temp 97.2(TE); Pulse Ox 100% on R/A; Weight 68.04 kg; br2 Height 5 ft. 3 in. ; Pain 8/10; 06/30 01:20 BP 125 / 85; Pulse 81; Resp 17 S; Temp 97.6(T); Pulse Ox 100% on R/A; ha1 06/29 21:25 Body Mass Index 26.57 (68.04 kg, 160.02 cm) br2 06/29 21:25 Pain Scale: Adult br2 [place] Coma Score: 00:50 Eye Response: spontaneous(4). Motor Response: obeys commands(6). Verbal Response: cp oriented(5). Total: 15. ED Course: 06/29 21:11 Patient arrived in ED. im 21:18 Cipriano Miranda PA is PHCP. cp 21:18 Sebastian Tucker MD is Attending Physician. cp 21:24 Arm band placed on right wrist. ha1 21:25 Patient has correct armband on for positive identification. Provided Education on: PLAN br2 OF CARE. 21:29 Triage completed. br2 22:33 Inserted saline lock: 20 gauge in right antecubital area, using aseptic technique. af3 Blood collected. Flushed with 10 mL NS. 22:41 Deidra Connolly, CHANO is Primary Nurse. br2 23:03 CT Head Brain wo Cont In Process Unspecified. EDMS 23:30 No provider procedures requiring assistance completed. ha1 06/30 00:49 Buck Weber MD is Referral Physician. cp 01:20 Patient did not have IV access during this emergency room visit. IV discontinued, ha1 intact, bleeding controlled, No redness/swelling at site. Pressure dressing applied. Administered Medications: 06/29 22:43 Drug: NS 0.9% IV 1000 ml IV at 1 bolus Per protocol; to be given as a bolus over 60 br2 minutes Route: IV; Rate: 1 bolus; Site: right antecubital; 06/30 00:04 Follow up: Response: No adverse reaction; IV Status: Completed infusion ha1 00:13 Not Given (Patient Refused): [id number] mg IVP once; over 1 to 2 minutes ha1 00:13 Not Given (Patient Refused): mg IVP once ha1 00:13 Not Given (Patient Refused): [id number] mg IVP once ha1 00:38 Drug: metFORMIN PO 1000 mg PO once; with meal or snack Route: PO; ha1 01:30 Follow up: Response: No adverse reaction; Blood sugar is lowered ha1 00:38 Drug: NS 0.9% IV 1000 ml IV at 1 bolus Per protocol; to be given as a bolus over 60 ha1 minutes Route: IV; Rate: 1 bolus; Site: left antecubital; 01:00 Follow up: Response: No adverse reaction; IV Status: Completed infusion; IV Intake: ha1 1000ml Medication: 01:30 VIS not applicable for this client. ha1 Point of Care Testing: Blood Glucose: 06/29 22:36 Blood Glucose: 288 mg/dL; br2 Ranges: Intake: 06/30 01:00 IV: 1000ml; Total: 1000ml. ha1 Outcome: 00:51 Discharge ordered by . cp 01:30 Patient left the ED. ha1 01:30 Discharged to home ambulatory, with family, ha1 01:30 Condition: stable 01:30 Discharge instructions given to patient, Instructed on discharge instructions, follow up and referral plans. medication usage, Demonstrated understanding of instructions, follow-up care, medications, Prescriptions given X 2, Signatures: Dispatcher [employer] EDMS Cipriano Miranda PA PA cp Ayala, Heidy, RN RN ha1 Lisandra Mistry Belinda, RN RN br2 Stephy Lainez3 Corrections: (The following items were deleted from the chart) 06:04 01:41 Patient left the ED. ha1 ha1
[2024-06-30 02:09] VITALS: BP 138/97; TEMP 97.2; O2SAT 100
--- NOTE | 2024-06-30 03:06 | RAD REPORT ---
EXAM: CT Head Without Intravenous Contrast CLINICAL HISTORY: The patient is 18 years old and is Female; HEADACHE TECHNIQUE: Axial computed tomography images of the head/brain without intravenous contrast. Sagit [place] and coronal reformatted images were created and reviewed. This CT exam was performed using one or more of the following dose reduction techniques: automated exposure control, adjustment of t he mA and/or kV according to patient size, and/or use of iterative reconstruction technique. COMPARISON: No relevant prior studies available. FINDINGS: Brain: Unremarkable. No hemorrhage. No significant white matter disease. No edema. Ventricles: Unremarkable. No ventriculomegaly. Bones/joints: Unremarkable. No acute fracture. Soft tissues: Unremarkable. Sinuses: Unremarkable as visualized. Mastoid air cells: Unremarkable as visualized. No mastoid effusion. IMPRESSION: No acute intracranial abnormality. Electronically signed by: Stas Milton MD 06/30/2024 12:45 AM CDT 8 Due to temporary technical issues with the PACS/[employer] reporting system, reports are being roman d by the in-house radiologist without review as a courtesy to ensure prompt reporting the interpreting radiologist is fully responsible for the content of the report. Transcribed Date/Time: 06/30/2024 3:05 AM
== END 2024-06-30 01:41 | disposition home or self-care (01) ==
LOC: ER 21:08
DX: E11.65 Type 2 diabetes mellitus with hyperglycemia (principal)
CPT/HCPCS: 96361; 85025; 36415; 81025; 82947 ×2; 81003; 83690; 80053; 70450; 96360; 99284; J7030 ×2

== ENCOUNTER 2024-08-14 15:02 | Emergency (ER) | payer OTHER ==
--- OUTSIDE RECORDS SUMMARY | 2024-08-14 15:06 | XMS REPORT | Continuity of Care Document ---
Author Name Unknown Address [address] [place] [address] [facility] Address [address] [place] [address] Support Name Relationship Address Phone 1 ANNA MARIE [address] [phone] Unavailable 2 MELCHOR 100 [facility] HETAL LEY [address] [place] [address] Unavailable 3 Personal Relationship Unknown UnaANNA MARIE Roldan MOM [address] [place] [address] Unavailable JAQUELINEMELCHOR FUNG FRD 100 [facility] CENTERDUSTY LEY [address] [place] [address] Unavailable Unavailable Personal Relationship Unknown Unavai lable RIOS, ANNA MARIE M [address] [facility] [id number] [place] [address] Unavailable JONE RIOS [address] [facility] [id number] [place] [address] RAVI WILSON Parent Unknown JIM RIOSI M [address] [facility] [place] [id number] Unavailable JONE RIOS [address] [facility] [place] [address] Unavailable GABRIEL, ANNAM ARIE M 100 [facility] MUSTAPHA LEY [address] [place], [place] [address] Unavailable JONE RIOS 100 [facility] SANDRA LEY [address] [place] [address] Unavailable Care Team Providers Care Business Office Coordinator Name Role Phone FRANCISCO OLIVO Primary Care Physician Kortney CAROLINA Cruz Attending Clinician Unavailable YURIY REID Attending Clinician Unavailable [id number] Attending Clinician Unavailable BETHANY SERRA Attending Clinician Unavailable PROVIDER, CAMPAIGNS Attending Clinician UnavailMIRNA Casarez Attending Clinician Unavailable JACKLYN BASS Attending Clinician Unavailable Suresh KILLIAN, July Attending Clinician Unavailab SIGIFREDO Tellez Attending Clinician SIGIFREDO Mcgee Attending Clinician Bethany Pike Attending Clinician [phone] Lab, Ang - Db Attending Clinician Unavailable Jacklyn Figueroa Attending Clinician [phone] Doctor Unassigned, [place] Attending Clinician U CELSO Singh Attending Clinician Unavailab HARJIT Mcnamara Attending Clinician Unavailable OZZY URBAN Attending Clinician Riri Gao MD Attending Clinician [phone] RIRI HUTTON Attending Clinician Unavail christina Castro MD, Tono Attending Clinician [phone] TONO CASTRO Attending Clinician Unavailable BLOSSOM PEREZ Attending Clinician Unavailab GODWIN Vargas Attending Clinician Unavailab NATASHA Almeida Attending Clinician Unavailable Regina Bustillo MD Attending Clinician [phone] Natasha Forrest MD Attending Clinician [phone] Blossom Perez PA-C Attending Clinician [phone] Ronald Bach Attending Clinician + [phone] RONALD WEBER Attending Clinician Unavail Perico Catalan MD Attending Clinician [phone] Unknown, Attending Attending Clinician Unavailab BARBARA [place] Attending Clinician UnavailBARBARA Trivedi Attending Clinician Unavaila BARBARA Estrada Admitting Clinician Unavailjazmín obando Payers Payer Name Policy Type Policy Number Effective Date Expirati on Date Source 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 9 [id number] 2024 00:00:00 ELIANA BHAT [id number] 2024 00:00:00 [facility] [id number] 2021 00:00:00 [place] [id number] 2015 00:00:00 2016 00:00:00 Problems Condition Name Condition Details Condition Category Status Onset Date Resolution Date Last Treatment Date Treating Clinician Comments Source Type 2 diabetes mellitus without complicati on, without long-term current use of insulin (multi HCC) Type 2 diabetes mellitus without complicati on, without long-term current use of insulin (multi HCC) Disease Active 07-10 00:00: 00 Elida Bergold - Externa l Snoring Snoring Disease Active 07-10 00:00: 00 Elida Bergold - Externa l Large tonsils Large tonsils Disease Active 07-10 00:00: 00 Elida Bergold - Externa l Vulvar abscess Vulvar abscess Disease Active 6-05 00:00: 00 [facility] Dysmenorrh ea Dysmenorrh ea Disease Active -16 00:00: 00 [facility] Need for hepatitis C screening test Need for hepatitis C screening test Disease Active 08-25 00:00: 00 [facility] Enlarged tonsils Enlarged tonsils Disease Active 516 00:00: 00 [facility] Acute vaginitis Acute vaginitis Disease Active 2021-04 0-07 00:00: 00 [facility] Yeast infection Yeast infection Disease Active 2021-04 0-07 00:00: 00 [facility] Encounter to establish care Encounter to establish care Disease Active 2021-04 007 00:00: 00 [facility] Diabetes mellitus, new onset Diabetes mellitus, new onset Disease Active 2020-04 2-08 00:00: 00 [facility] Agoraphobi a Agoraphobi a Disease Active 12-19 00:00: 00 [facility] Generalize d anxiety disorder Generalize d anxiety disorder Disease Active 12-19 00:00: 00 [facility] Allergies, Adverse Reactions, Alerts Allergy Name Allergy Type Status Severity Reaction(s) Onset Date Inactive Date Treating Clinician Comments Source NO KNOWN ALLERGIE S Drug Class Active [facility] Social History Social Habit Start Date Stop Date Quantity Comments Source Sexual orientation 2024-04-13 15:21:46 Heterosexual (finding) Elida Bergold - External Gender identity [facility] ASSERTION Not Elida Wilcoxjasonnixon - External History of Social function 2024-07-10 00:00:00 2024-07-10 00:00:00 Elida Wilcoxóscar - External Tobacco use and exposure 2024-07-10 00:00:00 2024-07-10 00:00:00 Smokeless tobacco non-user Elida Wilcoxjasonnixon - External Sex 2024-04-13 15:14:25 2024-04-13 15:14:25 Female (finding) Elida Chana - External Exposure to SARS-CoV-2 (event) 2022-08-29 00:00:00 2022-09-08 15:42:00 Not sure [facility] Sex assigned at 2003 00:00:00 2005 00:00:00 F Elida Wilcoxjasonnixon - External Smoking Status Start Date Stop Date Source Never smoked tobacco Elida Zayas - External Medications Ordered Medication Name Filled Medication Name Start Date Stop Date Current Medication? Ordering Clinician Indication Dosage Frequency Signature (SIG) Comments Components Source Lancets does not apply Misc 07-10 00:00: 00 Yes [id number] Used for testing blood glucose twice daily. Elida cain Glucose Blood in vitro Strip 07-10 00:00: 00 Yes [id number] 100{eac h} Q.5D 100 each by other route 2 times daily Used to test blood glucose twice daily. Elida cain Blood Glucose Monitoring Suppl (Blood Glucose Monitor System) w/Device does not apply Kit 07-10 00:00: 00 Yes [id number] Testing Blood Glucose twice daily. Elida cain Metformin HCl 500 MG oral Tablet 07-10 00:00: 00 10-09 04:59 :00 Yes [id number] 500mg Take 1 tablet (500 mg total) by mouth in the morning and 1 tablet (500 mg total) in the evening. Take with meals. Elida cain sulfamethox azole-trime thoprim (BACTRIM DS) 800-160 mg per tablet 09-14 00:00: 00 Yes [id number] 1{tbl} Take 1 tablet by mouth in the morning and 1 tablet in the evening. [facility] LOESTRIN FE (LOESTRIN FE /) 1 mg-20 mcg (21)/75 mg (7) tablet 6-05 00:00: 00 Yes [id number] 1{tbl} Take 1 tablet by mouth in the morning. [facility] fluconazole (DIFLUCAN) 150 mg tablet 09-09 00:00: 00 09-10 04:59 :00 No [id number] 150mg Take 1 tablet by mouth once now for 1 dose. [facility] metformin ER 500 mg 24 hr tablet 24 00:00: 00 Yes [facility] fluconazole (DIFLUCAN) 150 mg tablet 2021-04 0 00:00: 00 08-25 00:00 :00 No [id number] Take 1 tab today and repeat 1 in 72 hrs [facility] NOVOLOG FLEXPEN U-100 INSULIN 100 unit/mL (3 mL) injection 12-19 00:00: 00 Yes inject under the skin. 4-8 units at meal time [facility] LANTUS SOLOSTAR U-100 INSULIN 100 unit/mL (3 mL) injection 12-19 00:00: 00 Yes 36U 36 Units at bedtime. [facility] fluticasone propionate 50 mcg/actuati on nasal spray 04-22 00:00: 00 01-16 00:00 :00 No [id number] 1{spray } Use 1 [place] in each nostril daily. [facility] clindamycin -benzoyl peroxide gel 2019-04 00:00: 00 01-16 00:00 :00 No [id number] Apply to area(s) every morning. [facility] doxycycline monohydrate 100 mg capsule 18 00:00: 00 01-16 00:00 :00 No 100mg Take 1 capsule by mouth 2 (two) times daily. [facility] fluocinolon e (DERMA-SMOO THE/FS BODY OIL) 0.01 % body oil 12-21 00:00: 00 01-16 00:00 :00 No [id number] Apply to area(s) 2 (two) times daily as needed for Rash or Itching. [facility] tretinoin 0.025 % cream 12-21 00:00: 00 01-16 00:00 :00 No [id number] Apply to area(s) at bedtime. Start Wed/Wed/ and increase to nightly as tolerated [facility] doxycycline monohydrate 100 mg tablet 12-21 00:00: 00 01-16 00:00 :00 No [id number] 100mg Take 1 tablet by mouth 2 (two) times daily. Twice daily for 2 weeks then daily until follow up [facility] Vital Signs Vital Name Observation Time Observation Value Comments S ource Systolic blood pressure 2024-07-10 16:15:00 122 mm[Hg] Elida ybo ld - External Diastolic blood pressure 2024-07-10 16:15:00 82 mm[Hg] Elidajane Bergo ld - External Heart rate 2024-07-10 16:15:00 102 /min Gabriella Zayas - External Body temperature 2024-07-10 16:15:00 36.78 Tarah Elida Chana - External Respiratory rate 2024-07-10 16:15:00 20 /min Elida Morenaold - External Body height 2024-07-10 16:15:00 160 cm Pat dinh ybold - External Body weight 2024-07-10 16:15:00 74.503 kg Pat dinh Seybold - External BMI 2024-07-10 16:15:00 29.10 kg/m2 Pat dinh ybold - External Oxygen saturation in Arterial blood by Pulse oximetry 2024-07-10 16:15:00 98 /min Elida Flor ld - External Systolic blood pressure 2022-09-14 14:33:00 125 mm[Hg] [facility] Diastolic blood pressure 2022-09-14 14:33:00 83 mm[Hg] [facility] Heart rate 2022-09-14 14:33:00 62 /min Unive [facility] Body temperature 2022-09-14 14:33:00 36.5 Tarah [facility] Respiratory rate 2022-09-14 14:33:00 18 /min [facility] Body height 2022-09-14 14:33:00 157.5 cm [facility] Body weight 2022-09-14 14:33:00 69.854 kg [facility] BMI 2022-09-14 14:33:00 28.17 kg/m2 [facility] Body mass index (BMI) [Percentile] Per age and sex 2022-09-14 14:33:00 91.23 % [facility] Systolic blood pressure 2022-09-09 21:20:00 133 mm[Hg] [facility] Diastolic blood pressure 2022-09-09 21:20:00 82 mm[Hg] [facility] Heart rate 2022-09-09 21:20:00 80 /min [facility] Body temperature 2022-09-09 21:20:00 36.83 Tarah [facility] Respiratory rate 2022-09-09 21:20:00 18 /min [facility] Body height 2022-09-09 21:20:00 157.5 cm [facility] Body weight 2022-09-09 21:20:00 71.26 kg [facility] BMI 2022-09-09 21:20:00 28.73 kg/m2 [facility] Body mass index (BMI) [Percentile] Per age and sex 2022-09-09 21:20:00 92.29 % [facility] Oxygen saturation in Arterial blood by Pulse oximetry 2022-09-09 21:20:00 98 /min [facility] Systolic blood pressure 2022-08-25 15:57:00 110 mm[Hg] [facility] Diastolic blood pressure 2022-08-25 15:57:00 72 mm[Hg] [facility] Heart rate 2022-08-25 15:57:00 68 /min [facility] Body temperature 2022-08-25 15:57:00 36.78 Tarah [facility] Body height 2022-08-25 15:57:00 160 cm [facility] Body weight 2022-08-25 15:57:00 71.305 kg [facility] BMI 2022-08-25 15:57:00 27.85 kg/m2 [facility] Body mass index (BMI) [Percentile] Per age and sex 2022-08-25 15:57:00 90.61 % [facility] Oxygen saturation in Arterial blood by Pulse oximetry 2022-08-25 15:57:00 98 /min [facility] Systolic blood pressure 2022-01-16 14:53:00 126 mm[Hg] [facility] Diastolic blood pressure 2022-01-16 14:53:00 81 mm[Hg] [facility] Heart rate 2022-01-16 14:53:00 83 /min [facility] Body temperature 2022-01-16 14:53:00 36.89 Tarah [facility] Body height 2022-01-16 14:53:00 160 cm [facility] Body weight 2022-01-16 14:53:00 76.658 kg [facility] BMI 2022-01-16 14:53:00 29.94 kg/m2 [facility] Body mass index (BMI) [Percentile] Per age and sex 2022-01-16 14:53:00 94.55 % [facility] Oxygen saturation in Arterial blood by Pulse oximetry 2022-01-16 14:53:00 99 /min [facility] Systolic blood pressure 2021-06-19 14:15:00 125 mm[Hg] [facility] Diastolic blood pressure 2021-06-19 14:15:00 82 mm[Hg] [facility] Heart rate 2021-06-19 14:15:00 87 /min [facility] Body temperature 2021-06-19 14:15:00 36.39 Tarah [facility] Respiratory rate 2021-06-19 14:15:00 19 /min [facility] Body weight 2021-06-19 14:15:00 69.174 kg [facility] Oxygen saturation in Arterial blood by Pulse oximetry 2021-06-19 14:15:00 98 /min [facility] Procedures Procedure Date / Time Performed Performing Clinicia n Source POCT TEST 2022-09-09 00:00:00 Bethany Serra [facility] ASSIGNMENT OF BENEFITS 2022-08-25 15:40:38 Docto r Unassigned, [place] [facility] POCT URINALYSIS 2022-01-16 00:00:00 Jacklyn Bass [facility] Encounters Start Date/Time End Date/Time Encounter Type Admission Type Attending [facility] Care Facility Care Department Encounter ID Source 2024-10-09 08:00:00 2024-10-09 08:00:00 Outpatient CAROLINA FELICIANO [id number] [facility] 2024-08-25 15:40:00 2024-08-25 15:40:00 Outpatient YURIY REID [id number] [facility] 2024-08-10 09:20:00 2024-08-10 09:20:00 Outpatient YURIY REID [id number] [facility] 2024-08-02 10:00:00 2024-08-02 10:00:00 Outpatient CAROLINA FELICIANO [id number] [facility] 2024-07-24 11:00:00 2024-07-24 11:00:00 Outpatient YURIY REID [id number] [facility] 2024-07-24 11:00:00 2024-07-24 11:00:00 Outpatient YURIY REID [id number] [facility] 2024-07-12 00:00:00 2024-07-12 00:00:00 Outpatient CAROLINA FELICIANO [id number] [facility] 2024-07-12 00:00:00 2024-07-12 00:00:00 Outpatient CAROLINA FELICIANO [id number] [facility] 2024-07-12 00:00:00 2024-07-12 00:00:00 Outpatient FELICIANO, CAROLINA RUIZ [id number] [facility] Wilcoxnixon 2024-07-11 00:00:00 2024-07-11 00:00:00 Outpatient ELIDA RUIZ [id number] Elida Zayas 2024-07-10 11:50:00 2024-07-10 11:50:00 Outpatient [id number] ELIDA RUIZ [id number] [facility] Wilcoxnixon 2024-07-10 11:00:00 2024-07-10 11:00:00 Outpatient FELICIANO, CAROLINA RUIZ ELIDA [id number] Elida Zayas 2024-07-07 16:00:00 2024-07-07 16:00:00 Outpatient [facility] [id number] [facility] 2024-07-03 00:00:00 2024-07-03 00:00:00 Outpatient PROVIDERADRIENNE [id number] [facility] 2024-04-21 09:30:00 2024-04-21 09:30:00 Outpatient FELICIANO, CAROLINA RUIZ [facility] [id number] [facility] 2024-04-20 09:30:00 2024-04-20 09:30:00 Outpatient CAROLINA FELICIANO ELIDA [id number] [facility] 2024-02-01 16:00:00 2024-02-01 16:00:00 Outpatient MIRNA OSORIO [id number] [facility] 2022-12-29 08:00:00 2022-12-29 08:00:00 Outpatient [facility] [id number] [facility] 2022-12-22 00:00:00 2022-12-22 00:00:00 Pre Visit Outreach Shahnaz Prince [id number] 350.1.13.10 4.2.7.2.686 [id number] [facility] 2022-12-15 09:30:00 2022-12-15 09:30:00 Outpatient R CRUZ-JOHNIE S, SIGIFREDO CRUZ[facility]JOHNIE S, [facility] [id number] [facility] 2022-09-14 09:00:00 2022-09-14 09:52:13 Outpatient R CRUZ-JOHNIE S, SIGIFREDO CRUZ-JOHNIE S, [facility] [id number] [facility] 2022-09-14 09:00:00 2022-09-14 09:52:13 Office Visit [facility] 1.2.840.114 350.1.13.10 4.2.7.2.686 [id number] [facility] 2022-09-09 16:20:00 2022-09-09 16:40:02 Outpatient R [facility] [id number] [facility] 2022-09-09 16:20:00 2022-09-09 16:40:02 [facility] [id number] 350.1.13.10 4.2.7.2.686 [id number] [facility] 2022-08-25 11:30:00 2022-08-25 11:38:05 Nurse Researcher Visit Lab, Jacklyn Staffodr [facility] SHEILA?[facility] [id number] 350.1.13.10 4.2.7.2.686 [id number] [facility] 2022-08-25 11:30:00 2022-08-25 11:30:00 Outpatient R [facility] [id number] [facility] 2022-08-25 10:30:00 2022-08-25 11:25:41 Office Visit Jacklyn Bass [facility] SHEILA?[facility] 1..114 350.1.13.10 4.2.7.2.686 [id number] [facility] 2022-08-25 00:00:00 2022-08-25 00:00:00 Orders Only Doctor Unassigned, [place] [facility] 1.0.114 350.1.13.10 4.2.7.2.686 [id number] [facility] 2022-01-16 10:00:00 2022-01-16 10:24:07 Outpatient R [facility] [id number] [facility] 2022-01-16 10:00:00 2022-01-16 10:24:07 Office Visit Jacklyn Bass [facility] 1.114 350.1.13.10 4.2.7.2.686 [id number] [facility] 2021-09-23 10:15:00 2021-09-23 10:15:00 Outpatient [facility] [id number] [facility] 2021-08-13 14:30:00 2021-08-13 14:30:00 Outpatient R [facility] [id number] [facility] 2021-07-15 14:40:00 2021-07-15 14:40:00 Outpatient [facility] [id number] [facility] 2021-06-19 08:20:00 2021-06-19 08:40:00 Office Visit Riri Hutton [facility] 1.114 350.1.13.10 4.2.7.2.686 [id number] [facility] 2021-06-19 08:20:00 2021-06-19 08:20:00 Outpatient [facility] [id number] [facility] 2021-04-22 13:20:00 2021-04-22 13:47:41 Office Visit Tono Castro [facility] 1.2.840.114 350.1.13.10 4.2.7.2.686 [id number] [facility] 2021-04-22 13:20:00 2021-04-22 13:47:41 Outpatient R [facility] [id number] [facility] 2021-04-22 13:20:00 2021-04-22 13:20:00 Outpatient R [facility] [id number] [facility] 2021-04-22 00:00:00 2021-04-22 00:00:00 Telephone Tono Castro [facility] 1.2.840.114 350.1.13.10 4.2.7.2.686 [id number] [facility] 2021-03-19 00:00:00 2021-03-19 00:00:00 Telephone Riri Hutton [facility] 1.2.840.114 350.1.13.10 4.2.7.2.686 [id number] [facility] 2021-03-18 09:40:00 2021-03-18 10:28:00 Outpatient [facility] [id number] [facility] 2021-03-18 09:37:28 2021-03-18 10:28:00 Office Visit Riri Hutton [facility] 1.2.840.114 350.1.13.10 4.2.7.2.686 [id number] [facility] 2021-03-18 09:40:00 2021-03-18 09:40:00 Outpatient R [facility] [id number] [facility] 2021-03-18 00:00:00 2021-03-18 00:00:00 Orders Only Doctor Unassigned, [place] [facility] 1..114 350.1.13.10 4.2.7.2.686 [id number] [facility] 2021-02-05 10:10:00 2021-02-05 10:10:00 Outpatient [facility] [id number] [facility] 2020-05-24 14:45:00 2020-05-24 14:45:00 Outpatient [facility] [id number] [facility] 2020-05-07 10:00:00 2020-05-07 10:00:00 Outpatient [facility] [id number] [facility] 2020-04-22 10:15:00 2020-04-22 10:15:00 Outpatient [facility] [id number] [facility] 2020-03-22 13:30:00 2020-03-22 13:30:00 Outpatient [facility] [id number] [facility] 2020-02-21 00:00:00 2020-02-21 00:00:00 Telephone Keny [facility] 1.114 350.1.13.10 4.2.7.2.686 [id number] [facility] 2020-02-07 00:00:00 2020-02-07 00:00:00 Telephone [facility] 1.0.114 350.1.13.10 4.2.7.2.686 [id number] [facility] 2020-01-29 00:00:00 2020-01-29 00:00:00 Telephone [facility] 1.840.114 350.1.13.10 4.2.7.2.686 [id number] [facility] 2019-12-29 00:00:00 2019-12-29 00:00:00 Telephone Keny, [facility] 1.2.840.114 350.1.13.10 4.2.7.2.686 [id number] [facility] 2019-12-27 00:00:00 2019-12-27 00:00:00 Telephone Keny [facility] 1.2.840.114 350.1.13.10 4.2.7.2.686 [id number] [facility] 2019-12-22 14:13:28 2019-12-22 16:01:37 Office Visit Regina Bustillo [facility] 1.2840.114 350.1.13.10 4.2.7.2.686 [id number] [facility] 2019-12-22 15:15:00 2019-12-22 15:15:00 Outpatient [facility] [id number] [facility] 2019-12-20 07:46:32 2019-12-20 09:01:35 Office Visit Tono Castro Christina N [facility] 1.2.114 350.1.13.10 4.2.7.2.686 [id number] [facility] 2019-12-20 08:00:00 2019-12-20 08:00:00 Outpatient [facility] [id number] [facility] 2019-08-16 15:10:00 2019-08-16 15:10:00 Outpatient [facility] [id number] [facility] 2019-08-16 14:14:45 2019-08-16 14:34:45 Telemedici ne Visit Blossom Perez [facility] 1.2.114 350.1.13.10 4.2.7.2.686 [id number] [facility] 2019-08-15 00:00:00 2019-08-15 00:00:00 Orders Only Doctor Unassigned, [place] [facility] 1.2.840.114 350.1.13.10 4.2.7.2.686 [id number] [facility] 2019-08-14 00:00:00 2019-08-14 00:00:00 Telephone Weber [facility] 1.2.840.114 350.1.13.10 4.2.7.2.686 [id number] 225 [id number] [facility] 2019-07-14 13:30:00 2019-07-14 13:30:00 Outpatient R [facility] [id number] [facility] 2019-07-14 12:58:26 2019-07-14 13:18:26 Telemedici ne Visit Blossom Perez [facility] 1.2.840.114 350.1.13.10 4.2.7.2.686 [id number] 225 [id number] [facility] 2019-07-12 00:00:00 2019-07-12 00:00:00 Refill Weber [facility] 1.2.840.114 350.1.13.10 4.2.7.2.686 [id number] 225 [id number] [facility] 2019-07-05 16:00:00 2019-07-05 16:00:00 Outpatient R [facility] [id number] [facility] 2019-07-05 14:24:28 2019-07-05 14:44:28 [facility]medici ne [facility] 1.2.840.114 350.1.13.10 4.2.7.2.686 [id number] 225 [id number] [facility] 2019-07-05 00:00:00 2019-07-05 00:00:00 Telephone Weber [facility] 1.2.840.114 350.1.13.10 4.2.7.2.686 [id number] 225 [id number] [facility] 2019-06-13 13:51:57 2019-06-13 14:15:08 Office Visit Weber [facility] 1.2.840.114 350.1.13.10 4.2.7.2.686 [id number] 225 [id number] [facility] 2019-06-13 14:00:00 2019-06-13 14:00:00 Outpatient R WEBER [facility] [id number] [facility] 2019-06-13 00:00:00 2019-06-13 00:00:00 Orders Only Doctor Unassigned, [place] [facility] 1.2.840.114 350.1.13.10 4.2.7.2.686 [id number] [id number] [facility] 2019-06-13 00:00:00 2019-06-13 00:00:00 Letter (Out) Weber [facility] 1.2.840.114 350.1.13.10 4.2.7.2.686 [id number] 225 [id number] [facility] 2019-05-31 14:00:12 2019-05-31 14:19:53 Office Visit Weber [facility] 1.2.840.114 350.1.13.10 4.2.7.2.686 [id number] 225 [id number] [facility] 2019-05-31 00:00:00 2019-05-31 00:00:00 Letter (Out) [facility] 1.2.840.114 350.1.13.10 4.2.7.2.686 [id number] 225 [id number] [facility] 2019-04-21 00:00:00 2019-04-21 00:00:00 Telephone MatthewTono [facility] 1.2.840.114 350.1.13.10 4.2.7.2.686 [id number] 225 [id number] [facility] 2018-12-09 14:19:21 2018-12-09 15:05:49 Office Visit Blossom Perez [facility] 1.2.840.114 350.1.13.10 4.2.7.2.686 [id number] 225 [id number] [facility] 2018-12-09 00:00:00 2018-12-09 00:00:00 Orders Only Doctor Unassigned, [place] [facility] 1.2.840.114 350.1.13.10 4.2.7.2.686 [id number] [facility] 2018-11-27 11:25:55 2018-11-27 11:40:55 Urgent Care Perico Zafar, Attending [facility] 1.2.840.114 350.1.13.10 4.2.7.2.686 [id number] [facility] 2018-11-27 00:00:00 2018-11-27 00:00:00 Orders Only Doctor Unassigned, [place] [facility] 1.2.840.114 350.1.13.10 4.2.7.2.686 [id number] [facility] 2018-11-24 00:00:00 2018-11-24 00:00:00 Telephone Ronald Weber [facility] 1.2.840.114 350.1.13.10 4.2.7.2.686 [id number] 225 [id number] [facility] 2015-05-29 15:33:00 2015-05-31 16:56:00 Inpatient [facility] [id number] [facility] Results Test Description Test Time Test Comments Results Result Co mments Source [facility] [id number] 21:40:00* Test Item Value Reference Range Interpretation Comme nts POCT PREG (test code = 1605) Negative On board controls acceptable with C Line (test code = 3574) Yes POCT PREG LOT # (test code = 3575) POCT PREG TEST DATE ( test code = 3576) [facility] [id number] 15:46:00* Test Item Value Reference Range Interpretation [...] U APPEAR (test code = 3267) clear [facility] URINALYSIS W SPECIFIC [id number] 15:46:00* Test Item Value Reference Range Interpretation [...] U APPEAR (test code = 3267) clear [facility] URINALYSIS W SPECIFIC [id number] 15:46:00* Test Item Value Reference Range Interpretation [...] U APPEAR (test code = 3267) clear [facility] URINALYSIS W SPECIFIC [id number] 15:46:00* Test Item Value Reference Range Interpretation [...] U APPEAR (test code = 3267) clear [facility] Notes Date/Time Note Provider Source 2024-07-10 11:18:08 Chief Complaint Patient presents with New Patient Establish Care Has not had insurance in a long time. Gets tonsill stones and has enlarged tonsill's. Has been snoring Mireille Mariee LVN [facility] 2022-12-22 13:13:20 Formatting of this n ote might be different from the original. [employer] and Care Everywhere searched for patient records.Information reconciled into the patients chart. [employer] Private Message sent to patient with open care gaps. PN-PSYCHIATRY [facility]
[2024-08-14 15:33] LABS: Specific Gravity > 1.030 (1.005-1.030); Sqamous Epithelial <5 /HPF (None Seen); Urine Bacteria None Seen /HPF (<20); Urine Bilirubin NEGATIVE (Negative); Urine Blood Negative (Negative); Urine Clarity Clear (Clear); Urine Color Colorless (Yellow); Urine Glucose 4+ (Over) (Negative); Urine Ketones NEGATIVE (Negative); Urine Micro Reflex YN NO BILL MICROSCOPIC; Urine Nitrite NEGATIVE (Negative); Urine Protein NEGATIVE (Negative); Urine RBC <5 /HPF (None Seen); Urine Urobilinogen Normal (Normal); Urine WBC <5 /HPF (<5); Urine Yeast (Budding) Trace /HPF (None Seen); Urine pH 6.5 (5.0-7.0)
[2024-08-14] MEDS ORDERED: NA CHLORIDE 0.9% 1,000 ML ONE (15:54)
[2024-08-14 16:11] LABS: Absolute Eosinophils 0.3 K/uL (0-0.5); Absolute Lymphocytes (CBC) 3.6 K/uL (0.7-4.9); Absolute Monocytes 0.5 K/uL (0.1-1.3); Basophils % 0.3 % (0-1.3); Eosinophils % 2.4 % (0-4.4); Hemoglobin 15.1 g/dL (12.0-15.0); Lymphocytes % 34.7 % (15.3-44.8); MCH 28.9 pg (27.0-35.0); MCHC 35.1 g/dL (32.0-36.0); MCV 82.4 fL (80-100); MPV 8.4 fL (7.6-11.3); Monocytes % 4.5 % (3.3-12.3); Neutrophils % 58.1 % (41.7-73.7); Nucleated Red Blood Cells % 0.1 % (0-0); Platelets 333 thou/uL (152-406); RBC Red Blood Cell Count 5.22 M/uL (3.86-4.86); Red Cell Distribution Width 12.8 % (12.1-15.2)
[2024-08-14 16:30] LABS: ALT/SGPT 20 U/L (13-56); Albumin/Globulin Ratio 1.1 (1.1-1.8); Alkaline Phosphatase 106 U/L (45-117); BUN Blood Urea Nitrogen 14 mg/dL (7-18); Bicarbonate 27 mEq/L (21-32); Bilirubin Total 0.2 mg/dL (0.2-1.0); Globulin 3.7 g/dL (2.3-3.5); Glomerular Filtration Rate 129 ml/min (=/>90); Glucose Level 224 mg/dL (74-106); Lipase 32 U/L (13-75); Protein, Total 7.7 g/dL (6.4-8.2); Sodium Level 136 mEq/L (136-145)
[2024-08-14 16:31] LABS: AST/SGOT < 10 U/L (15-37)
--- NOTE | 2024-08-14 16:38 | RAD REPORT ---
EXAMINATION: CT ABDOMEN AND PELVIS WITH CONTRAST CLINICAL INDICATION: Abdominal pain TECHNIQUE: CT abdomen and pelvis was performed, after the administration of 100 cc Isovue-300.. Sagit alexand[place] and coronal reconstructions were obtained. One or more of the following dose reduction techniques were used: Automated exposure control, adjustment of the mA and kV according to patient si ze, and iterative reconstruction. Unless otherwise specified, incidental findings do not require dedicated imaging follow-up. [id number]. Oral contrast was not given which limits evaluation of bowel and appendix. COMPARISON: .2016 FINDINGS: Liver, spleen, pancreas, adrenals and kidneys appear unremarkable No evidence of diverticulitis. Normal appendix. Small umbilical hernia 2 cm irregularly-shaped left ovarian cyst. No follow-up imaging recommended. Small amount of free flu id. : IMPRESSION: 2 cm irregularly shaped left ovarian cyst likely has recently ruptured. There is a small amount of fr ee fluid in the pelvis
--- NOTE | 2024-08-14 17:00 | ER ---
Nurse's Notes [facility] Name: Lewis Smith Age: 18 yrs Sex: Female : 2005 Arrival Date: 08/14/2024 Time: 15:02 Bed 19 Private MD: Diagnosis: Other and unspecified ovarian cysts-Ruptured;Hyperglycemia, unspecified Presentation: 08/14 15:10 Chief complaint: Patient states: she has been having frequency in urination and pain in ap3 her pelvic area when sitting since yesterday afternoon. patient currently rates her pain as a 6/10 on the pain scale. Coronavirus screen: At this time, the client does not indicate any symptoms associated with coronavirus-19. Ebola Screen: No symptoms or risks identified at this time. Initial Sepsis Screen: Does the patient meet any 2 criteria? No. Patient's initial sepsis screen is negative. Does the patient have a suspected source of infection? No. Patient's initial sepsis screen is negative. Risk Assessment: Do you want to hurt yourself or someone else? Patient reports no desire to harm self or others. Onset of symptoms was August 13, 2024. 15:10 Method Of Arrival: Ambulatory ap3 15:10 Acuity: LAURI 3 ap3 Triage Assessment: 15:13 General: Appears in no apparent distress. Behavior is calm, cooperative, appropriate ap3 for age. Pain: Complains of pain in pelvis. Neuro: Level of Consciousness is awake, alert, obeys commands, Oriented to person, place, time, situation, Appropriate for age. Cardiovascular: Patient's skin is warm and dry. Respiratory: Airway is patent Respiratory effort is even, unlabored, Respiratory pattern is regular, symmetrical. : Reports urgency, urinary frequency. 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 Flu vaccine is not up to date. - Infectious Disease History:: Denies. - Social history:: Smoking status: Reported history of juuling and/or vaping. - Family history:: not pertinent. - Hospitalizations: : No recent hospitalization is reported. Screenin:14 [facility] ED Fall Risk Assessment (Adult) History of falling in the last 3 months, ap3 including since admission No falls in past 3 months (0 pts) Confusion or Disorientation No (0 pts) Intoxicated or Sedated No (0 pts) Impaired Gait No (0 pts) Mobility Assist Device Used No (0 pt) Altered Elimination No (0 pt) Score/Fall Risk Level 0 - 2 = Low Risk Oriented to surroundings, Maintained a safe environment, Educated pt \T\ family on fall prevention, incl call for assistance when getting out of bed, Assessed \T\ reinforced patient's understanding of fall precautions, Hourly rounding (assess needs \T\ fall precautionary measures) done, Used ambulatory aids as needed (educated on \T\ assisted with). Abuse screen: Denies threats or abuse. Nutritional screening: No deficits noted. Tuberculosis screening: No symptoms or risk factors identified. Assessment: 15:30 General: Appears uncomfortable, well groomed, well developed, well nourished, Behavior me1 is calm, cooperative, appropriate for age, Reports she has been having frequency in urination and pain in her pelvic area when sitting since yesterday afternoon. patient currently rates her pain as a 6/10 on the pain scale. Pain: Complains of pain in pelvis Pain does not radiate. Pain currently is 6 out of 10 on a pain scale. Quality of pain is described as pressure, Pain began 1 day ago. Is continuous. Neuro: Level of Consciousness is awake, alert, obeys commands, Oriented to person, place, time, situation, Appropriate for age. Cardiovascular: Patient's skin is warm and dry. Respiratory: Airway is patent Respiratory effort is even, unlabored, Respiratory pattern is regular, symmetrical. GI: No signs and/or symptoms were reported involving the gastrointestinal system. : Reports burning with urination, pain in suprapubic area since yesterday urinary frequency. EENT: No signs and/or symptoms were reported regarding the EENT system. Derm: Skin is intact, is healthy with good turgor, Skin is pink, warm \T\ dry. Musculoskeletal: No signs and/or symptoms reported regarding the musculoskeletal system. Vital Signs: 15:10 BP 148 / 103; Pulse 86; Resp 17; Temp 98.1; Pulse Ox 97% ; Weight 72.57 kg; Height 5 ap3 ft. 3 in. ; Pain 6/10; 16:30 BP 133 / 85; Pulse 73; Resp 16; Pulse Ox 100% ; me1 17:15 BP 158 / 90; Pulse 61; Resp 17; Temp 98.5; Pulse Ox 100% ; me1 15:10 Body Mass Index 28.34 (72.57 kg, 160.02 cm) ap3 15:10 Pain Scale: Adult ap3 ED Course: 15:04 Patient arrived in ED. im 15:09 Alan Hernandez MD is Attending Physician. rn 15:12 Triage completed. ap3 15:12 Shahnaz Wooten, CHANO is Primary Nurse. me1 15:14 Arm band placed on right wrist. ap3 15:24 Test, Urine Sent. me1 15:24 UA W/ Microscopic Sent. me1 15:30 Patient has correct armband on for positive identification. Bed in low position. Call me1 light in reach. Side rails up X2. Provided Education on: POC. Verbalized understanding.. Client placed on continuous cardiac and pulse oximetry monitoring. NIBP monitoring applied. Pulse ox on. NIBP on. 15:30 No provider procedures requiring assistance completed. Patient did not have IV access me1 during this emergency room visit. 15:32 Test, Urine Sent. me1 15:32 UA W/ Microscopic Sent. me1 15:32 Urine collected: clean catch specimen, cloudy. me1 16:07 Initial lab(s) drawn, by ED staff, sent to lab. Inserted saline lock: 22 gauge in right me1 antecubital area, using aseptic technique. 16:11 CBC with Diff Sent. me1 16:11 CMP Sent. me1 16:11 Lipase Sent. me1 16:14 CT Abd/Pelvis - IV Contrast Only In Process Unspecified. EDMS 17:29 IV discontinued, intact, bleeding controlled, No redness/swelling at site. Pressure me1 dressing applied. Administered Medications: 16:07 Drug: NS 0.9% IV 1000 ml IV at 1 bolus Per protocol; to be given as a bolus over 60 me1 minutes Route: IV; Rate: 1 bolus; Site: right antecubital; 17:15 Follow up: Response: No adverse reaction; IV Status: Completed infusion; IV Intake: me1 1000ml 17:15 Drug: Ketorolac IVP 15 mg IVP once Route: IVP; Site: right antecubital; me1 17:15 Follow up: Response: No adverse reaction; Pain is decreased me1 Medication: 15:30 VIS not applicable for this client. me1 Intake: 17:15 IV: 1000ml; Total: 1000ml. me1 Outcome: 16:59 Discharge ordered by . rn 17:29 Discharged to home ambulatory, me1 17:29 Condition: stable 17:29 Discharge instructions given to patient, Instructed on discharge instructions, follow up and referral plans. medication usage, Demonstrated understanding of instructions, follow-up care, medications, Prescriptions given X 1, 17:29 Patient left the ED. me1 Signatures: Dispatcher [employer] EDMS Alan Hernandez MD MD rn Marily Klein RN RN ap3 Lisandra Mistry Michelle RN RN me1 Corrections: (The following items were deleted from the chart) 15:30 15:10 Chief complaint: Patient states: she has been having frequency in urination and me1 pain in her pelvic area when sitting since yesterday afternoon. patient currently rates her pain as a 6/10 on the pain scale ap3
--- NOTE | 2024-08-14 17:00 | EDPHYS ---
Physician Documentation [facility] Name: Lewis Smith Age: 18 yrs Sex: Female : 2005 Arrival Date: 08/14/2024 Time: 15:02 Bed 19 Private MD: ED Physician Alan Hernandez HPI: 08/14 16:20 This 18 yrs old Female presents to ER via Ambulatory with complaints of Pain rn With Urination, Low Back Pain. 16:21 The patient presents with abdominal pain in the lower abdomen. rn 16:21 Onset: The symptoms/episode began/occurred yesterday. The symptoms are described as rn achy. The patient has not experienced similar symptoms in the past. Patient reports lower abdominal and lower back pain since yesterday. No fever or chills. No vomiting or diarrhea. Patient reports dysuria and increased urinary frequency but also reports glucose in the 200s lately. No trauma. No known history of ovarian pathology or endometriosis but mother with endometriosis.. 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 Flu vaccine is not up to date. - Infectious Disease History:: Denies. - Social history:: Smoking status: Reported history of juuling and/or vaping. - Family history:: not pertinent. - Hospitalizations: : No recent hospitalization is reported. ROS: 16:21 Constitutional: Negative for fever, chills, and weight loss, Cardiovascular: Negative rn for chest pain, palpitations, and edema, Respiratory: Negative for shortness of breath, cough, wheezing, and pleuritic chest pain, Abdomen/GI: Positive for lower abdominal pain Back: Positive for lower back pain : Positive for dysuria MS/Extremity: Negative for injury and deformity, Skin: Negative for injury, rash, and discoloration, Neuro: Negative for headache, weakness, numbness, tingling, and seizure, Exam: 16:21 Constitutional: This is a well developed, well nourished patient who is awake, alert, rn and in no acute distress. Cardiovascular: Regular rate and rhythm. No pulse deficits. Respiratory: No increased work of breathing, no retractions or nasal flaring. Abdomen/GI: Soft, mildly tender left lower and right lower quadrants. Moderate tender suprapubic region Back: No CVA tenderness Vital Signs: 15:10 BP 148 / 103; Pulse 86; Resp 17; Temp 98.1; Pulse Ox 97% ; Weight 72.57 kg; Height 5 ap3 ft. 3 in. ; Pain 6/10; 16:30 BP 133 / 85; Pulse 73; Resp 16; Pulse Ox 100% ; me1 17:15 BP 158 / 90; Pulse 61; Resp 17; Temp 98.5; Pulse Ox 100% ; me1 15:10 Body Mass Index 28.34 (72.57 kg, 160.02 cm) ap3 15:10 Pain Scale: Adult ap3 MDM: 15:09 Medical Screening Exam initiated rn 16:34 ED course: Patient taken to ultrasound suite, cryptographic technician states she attempted rn transabdominal study and could not get good images, when switched to transvaginal patient declined. Patient refuses pelvic ultrasound.. 16:58 Differential diagnosis: Endometriosis, non-specific abd pain, Ovarian Torsion, rn Ureterolithiasis, urinary tract infection. Data reviewed: vital signs, nurses notes, lab test result(s), radiologic studies, CT scan, and as a result, I will discharge patient. Counseling: I had a detailed discussion with the patient and/or guardian regarding the historical points, exam findings, and any diagnostic results supporting the discharge/admit diagnosis, lab results, radiology results, the need for outpatient follow up, to return to the emergency department if symptoms worsen or persist or if there are any questions or concerns that arise at home. Response to treatment: the patient's symptoms have mildly improved after treatment, and as a result, I will discharge patient. Special discussion: I discussed with the patient/guardian in detail that at this point there is no indication for admission to the hospital. It is understood, however, that if the symptoms persist or worsen the patient needs to return immediately for re-evaluation. Special discussion: Based on the history and exam findings, there is no indication for further emergent testing or inpatient evaluation. I discussed with the patient/guardian the need to see the OB Gyne specialist for further evaluation of the symptoms. ED course: CT shows likely left ruptured ovarian cyst which makes sense with patient's presentation. Her increased urinary frequency likely secondary to hyperglycemia but no diabetic emergency found. Will discharge home with diclofenac and return precautions.. 08/14 15:16 Order name: Test, Urine; Complete Time: 15:51 rn 08/14 15:16 Order name: UA W/ Microscopic; Complete Time: 15:51 rn 08/14 15:51 Order name: CBC with Diff; Complete Time: 16:33 rn 08/14 15:51 Order name: CMP; Complete Time: 16:33 rn 08/14 15:51 Order name: Lipase; Complete Time: 16:33 rn 08/14 15:51 Order name: CT Abd/Pelvis - IV Contrast Only; Complete Time: 16:51 rn 08/14 15:51 Order name: IV Saline Lock; Complete Time: 16:11 rn 08/14 15:51 Order name: Labs collected and sent; Complete Time: 16:11 rn Administered Medications: 16:07 Drug: NS 0.9% IV 1000 ml IV at 1 bolus Per protocol; to be given as a bolus over 60 me1 minutes Route: IV; Rate: 1 bolus; Site: right antecubital; 17:15 Follow up: Response: No adverse reaction; IV Status: Completed infusion; IV Intake: me1 1000ml 17:15 Drug: Ketorolac IVP 15 mg IVP once Route: IVP; Site: right antecubital; me1 17:15 Follow up: Response: No adverse reaction; Pain is decreased me1 Disposition Summary: 08/14/24 16:59 Discharge Ordered Notes: Location: Home rn Problem: new rn Symptoms: have improved rn Condition: Stable rn Diagnosis - Other and unspecified ovarian cysts - Ruptured rn - Hyperglycemia, unspecified rn Followup: rn - With: Private Physician - When: As needed - Reason: Recheck today's complaints, Re-evaluation by your physician Discharge Instructions: - Discharge Summary Sheet rn - Hyperglycemia rn - Ovarian Cyst rn - Blood Glucose Monitoring, Adult rn Forms: - Medication Reconciliation Form rn - Antibiotic internal revenue agent - Prescription Opioid Use rn - Patient Portal Instructions rn - Leadership Thank You Letter rn Prescriptions: - Diclofenac Sodium 75 mg Oral tablet, delayed release (enteric coated) - take 1 tablet ORAL route 2 times per day; 20 tablet; Refills: 0, Product rn Selection Permitted Signatures: Dispatcher [employer] Alan Dunn MD MD rn Prokisch, Amanda, RN RN ap3 Shahnaz Wooten, RN RN me1 Corrections: (The following items were deleted from the chart) 15:51 15:51 CBC+H.LAB.BRZ ordered. EDMS EDMS 15:51 15:51 COMPREHENSIVE METABOLIC PANEL+C.LAB.BRZ ordered. EDMS EDMS 15:51 15:51 LIPASE+C.LAB.BRZ ordered. EDMS EDMS 15:52 15:52 Abdomen Pelvis W Con+CT.RAD.BRZ ordered. EDMS EDMS 16:01 16:01 Pelvis Complete+US.RAD.BRZ ordered. EDMS EDMS 16:31 16:23 Transvaginal Study Probe ordered. EDMS EDMS
[2024-08-14] MEDS ORDERED: KETOROLAC 30 MG/ML INJ ONE (17:07)
[2024-08-14 22:05] VITALS: O2SAT 100
[2024-08-14 22:07] VITALS: BP 158/90; TEMP 98.5
== END 2024-08-14 17:29 | disposition home or self-care (01) ==
LOC: ER 15:02
DX: N83.292 Other ovarian cyst, left side (principal); E11.65 Type 2 diabetes mellitus with hyperglycemia; Z28.310 Unvaccinated for COVID-19
CPT/HCPCS: 96361; 85025; 81001; 36415; 81025; 83690; 80053; 74177; 96374; 99284; J7030

== ENCOUNTER 2025-02-02 14:54 | Emergency (ER) | payer OTHER ==
[2025-02-02 15:35] LABS: Absolute Lymphocytes (CBC) 1.6 K/uL (0.7-4.9); Hematocrit 44.3 % (36.0-45.0); Hemoglobin 15.3 g/dL (12.0-15.0); MCH 28.5 pg (27.0-35.0); MCHC 34.6 g/dL (32.0-36.0); MCV 82.4 fL (80-100); MPV 8.1 fL (7.6-11.3); Nucleated RBC Absolute Count 0.0 (0-0); Nucleated Red Blood Cells % 0.1 % (0-0); RBC Red Blood Cell Count 5.38 M/uL (3.86-4.86); White Blood Count 8.90 thou/uL (4.3-10.9)
[2025-02-02 15:38] LABS: Sqamous Epithelial <5 /HPF (None Seen); Urine Culture Reflex Order NOT NEEDED; Urine Microscopic Reflex YN ORDER UMIC
[2025-02-02 15:59] LABS: Potassium 3.8 mEq/L (3.5-5.1)
[2025-02-02 16:00] LABS: ALT/SGPT 26 U/L (13-56); Albumin 4.2 g/dL (3.4-5.0); Albumin/Globulin Ratio 1.1 (1.1-1.8); Alkaline Phosphatase 93 U/L (45-117); Anion Gap 9.8 mEq/L (5.0-15.0); BUN Blood Urea Nitrogen 13 mg/dL (7-18); Globulin 3.7 g/dL (2.3-3.5); Glucose Level 174 mg/dL (74-106); Lipase 32 U/L (13-75)
[2025-02-02 16:08] LABS: AST/SGOT < 10 U/L (15-37)
[2025-02-02] MEDS ORDERED: ONDANSETRON 4 MG/2 ML VIAL ONE (16:39)
[2025-02-02] MEDS ORDERED: NA CHLORIDE 0.9% 1,000 ML ONE (16:39)
--- NOTE | 2025-02-02 16:57 | RAD REPORT ---
EXAMINATION: Abdomen Pelvis W Contrast CLINICAL INDICATION: Female, 19 years old.ABD PAIN TECHNIQUE: CT abdomen and pelvis was performed, after the administration of IV contrast, [facility]. Axial, sagittal and coronal reconstructions were obtained. One or more of the following dose reduction techniques were used: Automated exposure control, adjustment of the mA and/o r kV according to patient size, and/or iterative reconstruction. Unless otherwise specified, incidental findings do not require dedicated imaging follow-up. [id number]. COMPARISON: 08/14/2024 FINDINGS: LOWER CHEST: No acute process identified. No significant pericardial effusion. Mild circumferential t hickening of the distal esophagus which could reflect esophagitis. UPPER GI: No significant abnormality. LIVER: No significant focal abnormality. GALLBLADDER/BILE DUCTS: No biliary ductal dilatation.? PANCREAS: No mass, ductal dilation, or dilip-pancreatic fluid. SPLEEN: Unremarkable. ADRENALS: No adrenal masses. KIDNEYS AND URETERS: No hydronephrosis. No suspicious renal mass. No renal calculi. No ureteral calcu li. ABDOMINAL AORTA AND OTHER VESSELS: Normal caliber aorta and IVC. PERITONEUM: No abnormal free fluid. No free air. LYMPH NODES: No pathologic lymphadenopathy. ABDOMINAL WALL: Small fat containing umbilical hernia. SMALL BOWEL/COLON: Small bowel has normal course and caliber. No colonic wall thickening or pericolon ic inflammatory changes. Normal appendix. URINARY BLADDER: Underdistended but grossly unremarkable. REPRODUCTIVE ORGANS: No pathologic process. MUSCULOSKELETAL: No acute or suspicious osseous abnormality. ADDITIONAL FINDINGS: None. IMPRESSION: No acute findings within the abdomen or pelvis. No appendicitis.
[2025-02-02] MEDS ORDERED: KETOROLAC 30 MG/ML INJ ONE (17:08)
--- NOTE | 2025-02-02 17:39 | ER ---
Nurse's Notes [facility] Name: Lewis Smith Age: 19 yrs Sex: Female : 2005 Arrival Date: 02/02/2025 Time: 14:54 Bed 12 Private MD: Diagnosis: Tension-type headache;Nausea Presentation: 02/02 15:03 Chief complaint: Patient states: woke up this morning with [place] / and n/v. Unable to me1 keep anything down. BGL 159 in triage. Coronavirus screen: Vaccine status: Patient reports being unvaccinated. Ebola Screen: No symptoms or risks identified at this time. Initial Sepsis Screen: Does the patient meet any 2 criteria? HR > 90 bpm. Does the patient have a suspected source of infection? No. Patient's initial sepsis screen is negative. Risk Assessment: Do you want to hurt yourself or someone else? Patient reports no desire to harm self or others. Onset of symptoms was February 02, 2025 at 06:00. 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 - Infectious Disease History:: Denies. - Social history:: Smoking status: Patient denies any tobacco usage or history of. Screenin:55 Abuse screen: Denies threats or abuse. Denies injuries from another. Nutritional ss screening: No deficits noted. Tuberculosis screening: Never had TB. Assessment: 16:55 General: Appears in no apparent distress. comfortable, Behavior is calm, cooperative, ss Reports feeling ill for 12-24 hours, Denies fever. Pain: Complains of pain in frontal headache Pain currently is 10 out of 10 on a pain scale. Quality of pain is described as aching. Neuro: Level of Consciousness is awake, alert, obeys commands, Oriented to person, place, time, situation. Respiratory: Airway is patent Respiratory effort is even, unlabored, Respiratory pattern is regular, symmetrical. GI: Reports nausea. Derm: Skin is intact, is healthy with good turgor, Skin is pink, warm \T\ dry. normal. Musculoskeletal: Circulation, motion, and sensation intact. Range of motion: intact in all extremities, Swelling absent. 17:43 Reassessment: Patient appears in no apparent distress at this time. Patient and/or ss family updated on plan of care and expected duration. Pain level reassessed. Patient is alert, oriented x 3, equal unlabored respirations, skin warm/dry/pink. Patient states feeling better. Patient states symptoms have improved. Vital Signs: 15:03 BP 145 / 89; Pulse 96; Resp 17; Temp 98.2; Pulse Ox 99% ; Weight 72.57 kg; Height 5 ft. me1 3 in. ; Pain 10/10; 15:03 Body Mass Index 28.34 (72.57 kg, 160.02 cm) me1 15:03 Pain Scale: Adult va1 ED Course: 14:57 Patient arrived in ED. al6 14:58 [facility]ago [facility] 14:58 Kiya Lloyd MD is Attending Physician. dr5 15:04 Triage completed. me1 15:04 Arm band placed on Patient placed in waiting room. me1 15:28 UA Rfx Rob Cult if indicated Sent. bc6 15:28 CBC with Diff Sent. bc6 15:28 CMP Sent. bc6 15:28 Lipase Sent. bc6 15:28 Test, Urine Sent. bc6 15:28 Initial lab(s) drawn, by va, sent to lab. Urine collected: clean catch specimen, clear. bc6 Inserted saline lock: 20 gauge in left antecubital area, using aseptic technique. Blood collected. Flushed with 10 mL NS. 16:38 CT Abd/Pelvis - IV Contrast Only In Process Unspecified. EDMS 16:46 Ashlie Sullivan, RN is Primary Nurse. ss 16:55 Patient has correct armband on for positive identification. ss 17:43 No provider procedures requiring assistance completed. IV discontinued, intact, ss bleeding controlled, No redness/swelling at site. Pressure dressing applied. Administered Medications: 16:53 Drug: NS 0.9% IV 1000 ml IV at 1 bolus Per protocol; to be given as a bolus over 60 ss minutes Route: IV; Rate: 1 bolus; Site: left antecubital; 17:45 Follow up: IV Status: Completed infusion; IV Intake: 1000ml ss 16:55 Drug: Ondansetron IVP 4 mg IVP once; over 2 minutes Route: IVP; Site: left antecubital; ss 17:29 Follow up: Response: No adverse reaction; Nausea is decreased ss 17:28 Drug: Ketorolac IVP 15 mg IVP once Route: IVP; Site: left antecubital; ss 17:45 Follow up: Response: No adverse reaction; Pain is decreased ss Medication: 16:55 VIS not applicable for this client. ss Intake: 17:45 IV: 1000ml; Total: 1000ml. ss Outcome: 17:38 Discharge ordered by MD. dr5 17:43 Discharged to home ambulatory, ss 17:43 Condition: improved 17:43 Discharge instructions given to patient, Instructed on discharge instructions, follow up and referral plans. medication usage, Demonstrated understanding of instructions, follow-up care, medications, Prescriptions given X 1, 17:43 Patient left the ED. ss Signatures: Dispatcher [employer] Ashlie Van RN RN Triny Rosa 6 Shahnaz Wooten RN RN me1 Arnav Buitrago, INTEGRATED CIRCUIT DESIGN ENGINEER-C INTEGRATED CIRCUIT DESIGN ENGINEER-Cdr5 Nelia Madrigal6 Corrections: (The following items were deleted from the chart) 16:55 16:53 NS 0.9% IV 1000 ml IV at 1 bolus in right antecubital ss ss
--- NOTE | 2025-02-02 17:39 | EDPHYS ---
Physician Documentation [facility] Name: Lewis Smith Age: 19 yrs Sex: Female : 2005 Arrival Date: 02/02/2025 Time: 14:54 Bed 12 Private MD: ED Physician Kiya Lloyd HPI: 02/02 17:39 This 19 yrs old Female presents to ER via Ambulatory with complaints of dr5 Vomiting. 18:18 The patient presents to the emergency department with nausea, vomiting. Onset: The dr5 symptoms/episode began/occurred this morning. Patient is a 19-year-old female with history of diabetes coming in with nausea and vomiting that started this morning. Patient reports also has headache. Patient reports she has been taking her diabetic medication as prescribed.. 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 - Infectious Disease History:: Denies. - Social history:: Smoking status: Patient denies any tobacco usage or history of. ROS: 18:18 Constitutional: as per hpi dr5 Exam: 18:18 Constitutional: This is a well developed, well nourished patient who is awake, alert, dr5 and in no acute distress. Head/Face: Normocephalic, atraumatic. Eyes: Pupils equal round and reactive to light, extra-ocular motions intact. Lids and lashes normal. Conjunctiva and sclera are non-icteric and not injected. Cornea within normal limits. Periorbital areas with no swelling, redness, or edema. Neck: Trachea midline, no thyromegaly or masses palpated, and no cervical lymphadenopathy. Supple, full range of motion without nuchal rigidity, or vertebral point tenderness. No Meningismus. Chest/axilla: Normal chest wall appearance and motion. Nontender with no deformity. No lesions are appreciated. Cardiovascular: Regular rate and rhythm with a normal S1 and S2. Normal PMI, no JVD. No pulse deficits. Respiratory: Lungs have equal breath sounds bilaterally, clear to auscultation. No rales, rhonchi or wheezes noted. No increased work of breathing, no retractions or nasal flaring. Abdomen/GI: Soft, non-tender, non-distended Back: No spinal tenderness. No costovertebral tenderness. Full range of motion. Skin: Warm, dry with normal turgor. Normal color with no rashes, no lesions, and no evidence of cellulitis. MS/ Extremity: Pulses equal, no cyanosis. Neurovascular intact. Full, normal range of motion. Neuro: Awake and alert, GCS 15, oriented to person, place, time, and situation. Cranial nerves II-XII grossly intact. Motor strength 5/5 in all extremities. Sensory grossly intact. Cerebellar exam normal. Normal gait. Vital Signs: 15:03 BP 145 / 89; Pulse 96; Resp 17; Temp 98.2; Pulse Ox 99% ; Weight 72.57 kg; Height 5 ft. me1 3 in. ; Pain 10/10; 15:03 Body Mass Index 28.34 (72.57 kg, 160.02 cm) me1 15:03 Pain Scale: Adult me1 MDM: 14:58 Medical Screening Exam initiated dr5 18:18 Differential diagnosis: Nonspecific abd pain, gastritis, appendicitis, diverticulitis, dr5 viral gastroenteritis, gastroenteritis. Data reviewed: vital signs, nurses notes, lab test result(s), amylase and lipase, CBC, white blood cell count, hemoglobin, hematocrit, platelets, electrolytes, sodium, potassium, chloride, serum bicarbonate, BUN, creatinine, serum glucose, radiologic studies, CT scan. Consideration of Admission/Observation Escalation of care including admission/observation considered. Escalation considered patient found to have appendicitis. I considered the following discharge prescriptions or medication management in the emergency department I discussed and recommended Over The Counter medications, Medications were administered in the Emergency Department. See MAR. Care significantly affected by the following chronic conditions: Diabetes. 18:22 Care significantly affected by the following Social Determinants of Health: Poor access dr5 to healthcare and/or lack of insurance, Poor access to transportation, Problems related to employment. Counseling: I had a detailed discussion with the patient and/or guardian regarding the historical points, exam findings, and any diagnostic results supporting the discharge/admit diagnosis, the presence of at least one elevated blood pressure reading (>120/80) during this emergency department visit, lab results, radiology results, the need for outpatient follow up, for definitive care, a family practitioner, to return to the emergency department if symptoms worsen or persist or if there are any questions or concerns that arise at home. Medication response: Response to treatment: the patient's symptoms have resolved after treatment, the patient's condition has returned to base line, the patient is now symptom free. Special discussion: I discussed with the patient/guardian in detail that at this point there is no indication for admission to the hospital. It is understood, however, that if the symptoms persist or worsen the patient needs to return immediately for re-evaluation. Based on the history and exam findings, there is no indication for further emergent testing or inpatient evaluation. I discussed with the patient/guardian the need to see the primary care provider for further evaluation of the symptoms. ED course: CT scan and labs discussed with patient as well as printed and given to patient. Patient reports that she is feeling much better and was likely dehydrated. Toradol alleviated headache. Will have patient follow-up primary care doctor this next week. All question answered. Strict ER precautions given.. 02/02 15:08 Order name: CBC with Diff; Complete Time: 15:43 me1 02/02 15:08 Order name: CMP; Complete Time: 16:23 me1 02/02 15:08 Order name: Lipase; Complete Time: 16:23 me1 02/02 15:08 Order name: Test, Urine; Complete Time: 15:43 me1 02/02 15:08 Order name: UA Rfx Rob Cult if indicated; Complete Time: 15:43 me1 02/02 15:14 Order name: Glucose, Ancillary Testing; Complete Time: 15:14 EDMS 02/02 15:43 Order name: CT Abd/Pelvis - IV Contrast Only; Complete Time: 17:01 dr5 02/02 15:08 Order name: IV Saline Lock; Complete Time: 15:28 me1 02/02 15:08 Order name: Labs collected and sent; Complete Time: 15:28 me1 Administered Medications: 16:53 Drug: NS 0.9% IV 1000 ml IV at 1 bolus Per protocol; to be given as a bolus over 60 ss minutes Route: IV; Rate: 1 bolus; Site: left antecubital; 17:45 Follow up: IV Status: Completed infusion; IV Intake: 1000ml ss 16:55 Drug: Ondansetron IVP 4 mg IVP once; over 2 minutes Route: IVP; Site: left antecubital; ss 17:29 Follow up: Response: No adverse reaction; Nausea is decreased ss 17:28 Drug: Ketorolac IVP 15 mg IVP once Route: IVP; Site: left antecubital; ss 17:45 Follow up: Response: No adverse reaction; Pain is decreased ss Disposition Summary: 02/02/25 17:38 Discharge Ordered Notes: Location: Home dr5 Condition: Stable dr5 Diagnosis - Tension-type headache dr5 - Nausea dr5 Followup: dr5 - With: Emergency Department - When: As needed - Reason: Worsening of condition Followup: dr5 - With: Private Physician - When: 1 - 2 days - Reason: Recheck today's complaints, Continuance of care, Re-evaluation by your physician Discharge Instructions: - Discharge Summary Sheet dr5 - Migraine Headache dr5 - Nausea and Vomiting, Adult dr5 Forms: - Medication Reconciliation Form dr5 - Patient Portal Instructions dr5 - Leadership Thank You Letter dr5 Prescriptions: - Zofran 4 mg Oral Tablet - take 1 tablet ORAL route every 12 hours As needed; 20 tablet; Refills: 0, dr5 Product Selection Permitted Signatures: Dispatcher [employer] Ashlie Van RN RN Shahnaz Wooten RN RN me1 Arnav Buitrago, TICKET PRINTER-C TICKET PRINTER-Cdr5
[2025-02-02 21:37] VITALS: BP 145/89; TEMP 98.2; O2SAT 99
== END 2025-02-02 17:43 | disposition home or self-care (01) ==
LOC: ER 14:54
DX: G44.209 Tension-type headache, unspecified, not intractable (principal); E11.9 Type 2 diabetes mellitus without complications
CPT/HCPCS: 96361; 85025; 81001; 36415; 81025; 82947; 83690; 80053; 74177; 96375; 96374; 99284; Q9967; J1885; J2405; J7030